=== PATIENT | female | born 1935 | race Caucasian/White ===

== ENCOUNTER → 2017-02-20 | Outpatient (CLI) | payer MEDICARE ==
--- NOTE | 2017-02-20 15:43 | RAD ---
MR of the right shoulder Indication: Chronic pain, increased after injury in December. Technique: Standard multiplanar sequences are obtained. Findings: Rotator cuff and acromioclavicular joint: Massive rotator cuff tear. Complete rupture of the supraspinatus and infraspinatus tendons, with severe retraction to the superior glenoid. Severe muscle atrophy and fatty infiltration. High-grade subscapularis tendon tear. Severely high riding humerus with severe undersurface pressure erosion of the acromion and the outer clavicle. Glenohumeral cartilage: Severe chondromalacia compatible with primary osteoarthritis. Fluid: Moderate joint effusion, with a complex appearance or cellulitis. This communicates with the subdeltoid bursa, with a large subdeltoid bursal effusion particularly posteriorly.. Labrum: Circumferential degeneration and tearing. Biceps tendon: Not visualized. Bones: Marrow signal is diffusely of low T1 and slightly high T2 signal, but without an aggressive appearance. Findings could be due to hematopoietic marrow conversion. No focal area of aggressive bone destruction or acute fracture. Soft tissue: No acute findings. Impression: 1. Massive rotator cuff tear with retraction and severe atrophy. 2. Severely high riding humerus with undersurface pressure erosion upon the acromioclavicular joint. 3. Primary glenohumeral joint osteoarthritis with circumferential labral degeneration/tearing. 4. Nonvisualized biceps tendon suspect rupture. 5. Moderate joint effusion with synovitis and large communicating subdeltoid bursal effusion. 6. Heterogeneous marrow signal intensity may be related to aging and hematopoietic reconversion. No definite focal aggressive pathology, but recommend clinical correlation regarding the possibility of infiltrative marrow process such as myelodysplastic or myeloproliferative disease. Electronically signed by: Aries Pool MD (02/20/2017 3:39 PM) [facility]
== END | disposition home or self-care (01) ==
LOC: MRI 14:23
PROVIDERS: ATTEND Family Medicine
DX: M75.101 Unspecified rotator cuff tear or rupture of right shoulder, not specified as traumatic (principal); M19.011 Primary osteoarthritis, right shoulder; M65.811 Other synovitis and tenosynovitis, right shoulder; G89.29 Other chronic pain
CPT/HCPCS: 73221

== ENCOUNTER → 2018-01-11 | Outpatient (CLI) | payer MEDICARE ==
[~2018-01-11] VITALS: Ht 149.9 cm; Wt 54.4 kg
[2018-01-11] VITALS (9 sets, daily range): BP systolic 120–179; BP diastolic 50–84
[~2018-01-11] MED LIST: ALEN70TA5 PO; ASPI81TA50 PO; CA C1TAB62 PO; CALC625T PO; HYDR12.53 PO; LIDOCAINE WITH 8.4% SOD BICARB 3 ML DISP.SYRIN. IJ ONE; LIDOCAINE WITH 8.4% SOD BICARB 3 ML DISP.SYRIN. ONE; LOSA25TA4 PO; METF500T5 PO; METO100T7 PO; MIDAZOLAM HCL/PF 2 MG/2 ML VIAL. IV ONE; MIDAZOLAM HCL/PF 2 MG/2 ML VIAL. ONE; NIAC500T PO; OMEP20CA9 PO; fentaNYL PF VIAL 100 MCG/2 ML VIAL IV ONE; fentaNYL PF VIAL 100 MCG/2 ML VIAL ONE
[2018-01-11 08:59] LABS: BASO # 0.1 x10^3/uL (0.0-0.2); BASO % 1 % (0-3); EOS # 0.1 x10^3/uL (0.0-0.7); EOS % 2 % (0-3); HEMATOCRIT 29.2 % (36.0-47.0); HEMOGLOBIN 10.1 g/dL (12.0-15.5); LYMPH % 18 % (24-48); MEAN CORPUSCULAR HEMOGLOBIN 28 pg (25-35); MEAN CORPUSCULAR HGB CONC 35 g/dL (31-37); MEAN CORPUSCULAR VOLUME 82 fL (79-100); MONO # 0.9 x10^3/uL (0.0-1.1); MONO % 15 % (0-9); NEUT # 3.9 x10^3uL (1.8-7.7); NEUT % 65 % (31-73); PLATELET COUNT 532 x10^3/uL (140-400); RED BLOOD COUNT 3.56 x10^6/uL (3.50-5.40); RED CELL DISTRIBUTION WIDTH 15.2 % (11.5-14.5); WHITE BLOOD COUNT 5.9 x10^3/uL (4.0-11.0)
[2018-01-11 09:12] LABS: CALCIUM 8.9 mg/dL (8.5-10.1); CREATININE 0.9 mg/dL (0.6-1.0); GFR 60.1; POTASSIUM 4.1 mmol/L (3.5-5.1)
[2018-01-11 09:22] LABS: PROTHROMBIN TIME PATIENT 13.3 SEC (11.7-14.0)
[2018-01-11 09:25] LABS: ALBUMIN 2.7 g/dL (3.4-5.0); ALBUMIN/GLOBULIN RATIO 0.4 (1.0-1.7); TOTAL BILIRUBIN 0.4 mg/dL (0.2-1.0); TOTAL PROTEIN 9.4 g/dL (6.4-8.2)
--- NOTE | 2018-01-11 09:43 | PDOC ---
MODERATE SEDATION ASSESSMENT RISKS/ALTERNATIVES Risks/Alternatives Risks and alternatives of this type of sedation and procedure discussed with: RISK/ALTERNATIVES: Patient H & P ON CHART H & P H & P on chart and reviewed for co-morbid conditions and appropriate labs. H&P ON CHART: Yes STATUS PREG STATUS ASSESSED: Yes MEDS/ALLERGIES REVIEWED Meds/Allergies Reviewed Medications and Allergies including time and route of recently administered narcotics and sedatives. MEDS/ALLERGIES REVIEWED: Yes ASA RATING ASA RATING: II AIRWAY ASSESSMENT Airway Assessment Airway patency, oral function limitations, presence of caps, crowns, dentures, partials, and ability to extend neck assessed. AIRWAY ASSESSMENT: Yes MALLAMPATI SCORE MALLAMPATI SCORE: II PRE-SEDATION ASSESSMENT PRE-SEDATION ASSESSMENT: Yes TIARA PARKER MD Jan 11, 2018 09:43
--- NOTE | 2018-01-11 10:52 | RAD ---
CT-guided bone marrow biopsy. 01/11/2018 10:48 AM Indication: MGUS Discussion: The risks and benefits of the procedure, including but not limited to, bleeding and infection were discussed patient. Informed consent was obtained. The patient was brought to the CT scanner and placed in the prone position. A timeout procedure was performed. [employer] CT imaging of the pelvis demonstrated left ilium amenable to bone marrow biopsy. The overlying soft tissues were prepped and draped using maximum sterile barrier technique. 1% lidocaine without epinephrine was administered for local anesthesia. Under intermittent CT guidance, an OncControl needle was advanced into the bone marrow of the left iliac crest. 2 Aspirates and 1 core biopsy samples were obtained. Samples were delivered to pathology was present at the time of procedure. The needle was removed and manual pressure held to achieve hemostasis. No immediate complications were identified. The procedure was performed under conscious sedation including continuous cardiopulmonary monitoring via dedicated sedation nurse. Sedation time: 20 minutes Impression: Successful CT-guided bone marrow biopsy of the left iliac crest . PQRS Compliance Statement: One or more of the following individualized dose reduction techniques were utilized for this examination: 1. Automated exposure control 2. Adjustment of the mA and/or kV according to patient size 3. Use of iterative reconstruction technique
== END | disposition home or self-care (01) ==
LOC: INTRAD 08:21
PROVIDERS: ATTEND Internal Medicine Hematology & Oncology
DX: D47.2 Monoclonal gammopathy (principal); Z79.82 Long term (current) use of aspirin; Z79.899 Other long term (current) drug therapy; M19.011 Primary osteoarthritis, right shoulder; G89.29 Other chronic pain; I10 Essential (primary) hypertension; E11.9 Type 2 diabetes mellitus without complications; D64.9 Anemia, unspecified; Z98.49 Cataract extraction status, unspecified eye
CPT/HCPCS: 36415; 38222; 77012; 80053; 85025; 85610; 88184; 88185; 88237; 99152; J2250; J3010

== ENCOUNTER → 2018-01-14 | Outpatient (CLI) | payer MEDICARE ==
[2018-01-11 10:50] VITALS: BP 124/57
[~2018-01-14] MED LIST changes: +CONTRAST GIVEN. MC PRN; +IOHEXOL 240 MG/ML 50ML VIAL. PO ONE; +IOHEXOL 300 MG/ML 100ML VIAL. IV ONE; -LIDOCAINE WITH 8.4% SOD BICARB 3 ML DISP.SYRIN. IJ ONE; -LIDOCAINE WITH 8.4% SOD BICARB 3 ML DISP.SYRIN. ONE; -MIDAZOLAM HCL/PF 2 MG/2 ML VIAL. IV ONE; -MIDAZOLAM HCL/PF 2 MG/2 ML VIAL. ONE; -fentaNYL PF VIAL 100 MCG/2 ML VIAL IV ONE; -fentaNYL PF VIAL 100 MCG/2 ML VIAL ONE
--- NOTE | 2018-01-14 10:38 | RAD ---
EXAM: CT Chest, Abdomen and Pelvis with IV contrast CLINICAL HISTORY: MGUS INJ 75ML OMNI 300 NO PREV COMPARISON: None. TECHNIQUE: Helical CT of the chest, abdomen and pelvis was performed following the administration of intravenous contrast. Oral contrast was administered. Axial, coronal and sagittal reformatted images were generated. ---PQRS compliance statement - One or more of the following individualized dose reduction techniques were utilized for this study: 1. Automated exposure control 2. Adjustment of the mA and/or kV according to patient size 3. Use of iterative reconstruction technique--- FINDINGS: Chest: The heart is not enlarged. No pericardial effusion. Thickening of the myocardium at the cardiac apex possibly from prior infarct. Prominent axillary lymph nodes are seen, not enlarged by size criteria. No mediastinal or hilar lymphadenopathy. Moderate-sized hiatal hernia. Linear opacities in the left lung base likely subsegmental atelectasis or scarring. Azygos lobe is incidentally seen. No suspicious lung nodule or mass is identified. No pleural effusion or pneumothorax. Abdomen and Pelvis: No focal liver lesion. Cholecystectomy clips are seen. No biliary ductal dilatation. Spleen is top normal in size measuring 11.8 cm in length. Adrenal glands and pancreas are unremarkable. Symmetric nephrograms. No focal renal lesion. No hydronephrosis. Colonic diverticulosis. No evidence for acute diverticulitis. No small or large bowel dilatation to suggest bowel obstruction. Appendix is not seen. No significant right lower quadrant fatty inflammatory changes seen. Oral contrast material seen to the level of the hepatic flexure. Moderate colonic stool content. Bladder is unremarkable. Bones: Degenerative changes of the spine are seen. Evaluation for the bony lesion is limited given diffuse osteopenia. Within these constraints, there is a corduroy/trabeculated appearance of the L4 vertebral body likely hemangioma. Otherwise no convincing lytic lesion is identified. Collection about the right shoulder likely joint effusion/subacromial subdeltoid bursal distention with suspected full-thickness rotator cuff tear given acromiohumeral articulation. IMPRESSION: 1. No thoracic, abdominal or pelvic lymphadenopathy. 2. Diffuse osteopenia limits evaluation for discrete lytic lesion, but within these constraints no discrete lytic lesion is identified. 3. Collection about the right shoulder likely joint effusion/subacromial subdeltoid bursal distention with suspected full-thickness rotator cuff tear given high riding humeral head. 4. Moderate-sized hiatal hernia. Electronically signed by: Gonsalo Drummond MD (01/14/2018 10:34 AM) [id number]
== END | disposition home or self-care (01) ==
LOC: CT 08:26
PROVIDERS: ATTEND Internal Medicine Hematology & Oncology
DX: K44.9 Diaphragmatic hernia without obstruction or gangrene (principal); M85.80 Other specified disorders of bone density and structure, unspecified site; D47.2 Monoclonal gammopathy; I10 Essential (primary) hypertension; D64.9 Anemia, unspecified; Z79.899 Other long term (current) drug therapy
CPT/HCPCS: 71260; 74177; Q9966; Q9967

== ENCOUNTER → 2018-11-24 | Outpatient (CLI) | payer MEDICARE, OTHER ==
[2018-05-07 15:57] VITALS: BP 155/76
[~2018-11-24] MED LIST changes: -ALEN70TA5 PO; +ALEN70TA6 PO; -CONTRAST GIVEN. MC PRN; -HYDR12.53 PO; +HYDR12.575 PO; +HYDR12.58 PO; -IOHEXOL 240 MG/ML 50ML VIAL. PO ONE; -IOHEXOL 300 MG/ML 100ML VIAL. IV ONE; -LOSA25TA4 PO; +LOSA25TA54 PO; +METF500T16 PO; -METF500T5 PO; +OMEP20CA10 PO; -OMEP20CA9 PO; +OXYC1TAB15 PO; +OXYC1TAB19 PO; +RITU10VI IV; +WARF3TAB54 PO
--- NOTE | 2018-11-24 16:07 | RAD ---
RENAL ARTERY ARTERIAL DOPPLER ULTRASOUND Clinical Indication: Accelerated hypertension Comparison: None. Technique: Multiple grayscale, color flow, and Doppler spectral waveform analysis images of the abdominal aorta and renal arteries were obtained. Findings: Abdominal aorta peak systolic velocity: 119 cm/sec. The proximal abdominal aorta is normal in caliber. The mid and distal abdominal aorta are obscured due to overlying bowel gas. Right main renal artery peak systolic velocity: 142 cm/sec. Right renal artery to aorta ratio: 1.2 Left main renal artery peak systolic velocity: 80 cm/sec. Left renal artery to aorta ratio: 0.7 Renal veins are patent. The right kidney measures 10.4 cm. The left kidney measures 10.9 cm. Limited grayscale visualization of the kidneys due to overlying bowel gas. Corticomedullary differentiation is preserved. No hydronephrosis. IMPRESSION: No evidence of hemodynamically significant renal artery stenosis. Electronically signed by: Estrada Farley MD (11/24/2018 4:04 PM) [id number]
== END | disposition home or self-care (01) ==
LOC: US 07:07
PROVIDERS: ATTEND Family Medicine
DX: I10 Essential (primary) hypertension (principal)
CPT/HCPCS: 93975

== ENCOUNTER 2018-12-05 19:33 | Inpatient (IN) | payer MEDICARE, OTHER ==
[~2018-12-05] VITALS: Ht 144.8 cm; Wt 59.1 kg
[2018-12-05] MEDS ORDERED: ACETAMINOPHEN 325 MG TABLET. PO ONE (20:00)
[2018-12-05] MEDS: IV NORMAL SALINE 1000ML BAG 1,000 ML IV SCH ×3 (20:00→23:18)
[2018-12-05] MEDS ORDERED: cefTRIAXone IV Push 2 GM VIAL. IVP ONE (20:00)
[2018-12-05] MEDS ORDERED: dilTIAZem IV PUSH 25 MG/5 ML VIAL IVP ONE (20:30)
[2018-12-05 20:34] LABS: BASO % 0 % (0-3); EOS % 0 % (0-3); HEMATOCRIT 29.5 % (36.0-47.0); LYMPH # 0.6 x10^3/uL (1.0-4.8); LYMPH % 16 % (24-48); MEAN CORPUSCULAR HEMOGLOBIN 28 pg (25-35); MEAN CORPUSCULAR HGB CONC 34 g/dL (31-37); MEAN CORPUSCULAR VOLUME 82 fL (79-100); MONO # 2.8 x10^3/uL (0.0-1.1); MONO % 78 % (0-9); NEUT # 0.2 x10^3/uL (1.8-7.7); NEUT % 5 % (31-73); PLATELET COUNT 232 x10^3/uL (140-400); RED BLOOD COUNT 3.59 x10^6/uL (3.50-5.40); RED CELL DISTRIBUTION WIDTH 14.9 % (11.5-14.5)
[2018-12-05 20:35] LABS: BILIRUBIN,URINE SMALL (NEG); CLARITY,URINE CLEAR; COLOR,URINE AMBER; NITRITE,URINE NEGATIVE (NEG); PH,URINE 5.5; PROTEIN,URINE >=300 mg/dL (NEG-TRACE)
[2018-12-05 20:42] LABS: PROTHROMBIN TIME PATIENT 15.4 SEC (11.7-14.0)
[2018-12-05 20:45] LABS: CALCIUM 8.4 mg/dL (8.5-10.1); CREATININE 1.5 mg/dL (0.6-1.0); GFR 33.2; POTASSIUM 3.3 mmol/L (3.5-5.1)
[2018-12-05 20:46] LABS: AMORPHOUS SEDIMENT,UR PRESENT /HPF; BACTERIA,URINE FEW /HPF (0-FEW); RBC,URINE OCC /HPF (0-2); SQUAMOUS EPITHELIAL CELL,UR OCC /LPF; WBC,URINE OCC /HPF (0-4)
[2018-12-05 20:52] LABS: ALBUMIN 2.7 g/dL (3.4-5.0); ALBUMIN/GLOBULIN RATIO 0.7 (1.0-1.7); MAGNESIUM 1.6 mg/dL (1.8-2.4); TOTAL BILIRUBIN 1.2 mg/dL (0.2-1.0); TOTAL PROTEIN 6.6 g/dL (6.4-8.2)
[2018-12-05] MEDS ORDERED: DOXYCYCLINE HYCLATE 100 MG in IV DEXTROSE 5% 100ML 100 ML IV ONE (21:00)
[2018-12-05] MEDS ORDERED: MAGNESIUM SULFATE 1GM 100 ML IV ONE (21:15)
[2018-12-05] MEDS: POTASSIUM CHLORIDE 10MEQ 100 ML IV SCH ×2 (21:17→23:17)
[2018-12-05] MEDS ORDERED: dilTIAZem INJ 125 MG in IV DEXTROSE 5% 100ML 100 ML IV ONE (21:30)
--- NOTE | 2018-12-05 21:55 | RAD ---
AP chest x-ray HISTORY: Fever. FINDINGS: Heart size normal. Hiatal hernia upper stomach. Azygos lobe right medial apex. Old healed right rib deformities. Advanced right shoulder arthritis perhaps associated with chronic rotator cuff tear. Reticulonodular densities about the perihilar lungs and lower lobes. Peribronchial cuffing about the perihilar and infrahilar lungs could indicate bronchitis. No lobar consolidation. IMPRESSION: Peribronchial cuffing may indicate bronchitis. Reticulonodular densities at the lower lobes could be indicative of pneumonia. Electronically signed by: Senthil Murphy MD (12/05/2018 9:52 PM) [facility]
--- NOTE | 2018-12-05 21:59 | PHYS DOC ---
Past Medical History Past Medical History: Cancer, Hypertension Additional Past Medical Histor: LYMPHOMA Past Surgical History: No Surgical History Alcohol Use: None Drug Use: None Adult General Chief Complaint Chief Complaint: WEAKNESS/GENERALIZED HPI HPI Patient is a 83 year old female is presenting with chief complaint of generalized weakness lightheadedness had a fever felt hot earlier in the day when not coughing that much just not eating well and feeling weak overall. No chest pain no abdominal pain did throw up once earlier. No urinary symptoms really Review of Systems Review of Systems Constitutional: Eyes: Denies change in visual acuity, redness, or eye pain [] HENT: Denies nasal congestion or sore throat [] Respirator Cardiovascular: No additional information not addressed in HPI [] GI: Musculoskeletal: Denies back pain or joint pain [] Integument: Denies rash or skin lesions [] Neurologic: Denies headache, focal weakness or sensory changes [] Endocrine: Denies polyuria or polydipsia [] All other systems were reviewed and found to be within normal limits, except as documented in this note. Current Medications Current Medications Current Medications Medications (Trade) Dose Ordered Sig/Valarie Start Time Stop Time Status Last Admin Dose Admin Acetaminophen (Tylenol) 650 mg 1X ONCE 12/05/18 20:00 12/05/18 20:04 DC 12/05/18 20:34 650 MG Ceftriaxone Sodium (Rocephin) 2 gm 1X ONCE 12/05/18 20:00 12/05/18 20:04 DC 12/05/18 20:35 2 GM Diltiazem HCl (Cardizem Iv Push) 10 mg 1X ONCE 12/05/18 20:30 12/05/18 20:31 DC 12/05/18 20:36 10 MG Diltiazem HCl 125 mg/Dextrose 125 ml @ 5 mls/hr 1X ONCE 12/05/18 21:30 12/06/18 22:29 12/05/18 21:27 5 MLS/HR Doxycycline Hyclate 100 mg/ Dextrose 100 ml @ 50 mls/hr 1X ONCE 12/05/18 21:00 12/05/18 22:59 12/05/18 21:07 50 MLS/HR Magnesium Sulfate/ Dextrose 100 ml @ 100 mls/hr 1X ONCE 12/05/18 21:15 12/05/18 22:14 DC 12/05/18 21:27 100 MLS/HR Potassium Chloride/Water 100 ml @ 100 mls/hr Q1H 12/05/18 21:15 12/05/18 23:14 12/05/18 21:17 100 MLS/HR Sodium Chloride 1,000 ml @ 1,620 mls/hr Q38M 12/05/18 20:00 12/05/18 21:00 DC 12/05/18 20:00 1,620 MLS/HR Allergies Allergies Allergies Coded Allergies Type Severity Reaction Last Updated Verified No Known Allergies Allergy Unknown 05/04/18 Yes Physical Exam Physical Exam Constitutional: Well developed, well nourished, no acute distress, non-toxic appearance. [] HENT: Normocephalic, atraumatic, bilateral external ears normal, oropharynx moist, no oral exudates, nose normal. [] Eyes: PERRLA, EOMI, conjunctiva normal, no discharge. [] Neck: Normal range of motion, no tenderness, supple, no stridor. [] Cardiovascular:Heart rate regular rhythm, no murmur [] Lungs & Thorax: Bilateral breath sounds clear to auscultation [] Abdomen: Bowel sounds normal, soft, no tenderness, no masses, no pulsatile masses. [] Skin: Warm, dry, no erythema, no rash. [] Back: No tenderness, no CVA tenderness. [] Extremities: No tenderness, no cyanosis, no clubbing, ROM intact, no edema. [] Neurologic: Alert and oriented X 3, normal motor function, normal sensory function, no focal deficits noted. [] Psychologic: Affect normal, judgement normal, mood normal. [] Current Patient Data Vital Signs Vital Signs Date Time Temp Pulse Resp B/P (MAP) Pulse Ox O2 Delivery O2 Flow Rate FiO2 12/05/18 21:27 126 15 97 12/05/18 20:36 146/60 12/05/18 20:02 103.0 103.0 12/05/18 19:45 Room Air Lab Values Laboratory Tests Test 12/05/18 20:20 12/05/18 20:30 White Blood Count 3.6 x10^3/uL (4.0-11.0) L Red Blood Count 3.59 x10^6/uL (3.50-5.40) Hemoglobin 10.0 g/dL (12.0-15.5) L Hematocrit 29.5 % (36.0-47.0) L Mean Corpuscular Volume 82 fL (79-100) Mean Corpuscular Hemoglobin 28 pg (25-35) Mean Corpuscular Hemoglobin Concent 34 g/dL (31-37) Red Cell Distribution Width 14.9 % (11.5-14.5) H Platelet Count 232 x10^3/uL (140-400) Neutrophils (%) (Auto) 5 % (31-73) L Lymphocytes (%) (Auto) 16 % (24-48) L Monocytes (%) (Auto) 78 % (0-9) H Eosinophils (%) (Auto) 0 % (0-3) Basophils (%) (Auto) 0 % (0-3) Neutrophils # (Auto) 0.2 x10^3/uL (1.8-7.7) L Lymphocytes # (Auto) 0.6 x10^3/uL (1.0-4.8) L Monocytes # (Auto) 2.8 x10^3/uL (0.0-1.1) H Eosinophils # (Auto) 0.0 x10^3/uL (0.0-0.7) Basophils # (Auto) 0.0 x10^3/uL (0.0-0.2) Platelet Estimate Pending Prothrombin Time 15.4 SEC (11.7-14.0) H Prothrombin Time INR 1.3 (0.8-1.1) H Sodium Level 125 mmol/L (136-145) L Potassium Level 3.3 mmol/L (3.5-5.1) L Chloride Level 91 mmol/L (98-107) L Carbon Dioxide Level 19 mmol/L (21-32) L Anion Gap 15 (6-14) H Blood Urea Nitrogen 36 mg/dL (7-20) H Creatinine 1.5 mg/dL (0.6-1.0) H Estimated GFR (Cockcroft-Gault) 33.2 BUN/Creatinine Ratio 24 (6-20) H Glucose Level 95 mg/dL (70-99) Lactic Acid Level 1.4 mmol/L (0.4-2.0) Calcium Level 8.4 mg/dL (8.5-10.1) L Magnesium Level 1.6 mg/dL (1.8-2.4) L Total Bilirubin 1.2 mg/dL (0.2-1.0) H Aspartate Amino Transferase (AST) 16 U/L (15-37) Alanine Aminotransferase (ALT) 37 U/L (14-59) Alkaline Phosphatase 78 U/L (46-116) Troponin I Quantitative < 0.017 ng/mL (0.000-0.055) WH-Fdw-[id number]-Type Natriuretic Peptide 8947 pg/mL (0-449) H Total Protein 6.6 g/dL (6.4-8.2) Albumin 2.7 g/dL (3.4-5.0) L Albumin/Globulin Ratio 0.7 (1.0-1.7) L Lipase 46 U/L (73-393) L Urine Collection Type U cath Urine Color Eulalia Urine Clarity Clear Urine pH 5.5 Urine Specific [place] 1.020 Urine Protein >=300 mg/dL (NEG-TRACE) Urine Glucose (UA) Negative mg/dL (NEG) Urine Ketones (Stick) Trace mg/dL (NEG) Urine Blood Negative (NEG) Urine Nitrite Negative (NEG) Urine Bilirubin Small (NEG) Urine Urobilinogen Dipstick 1.0 mg/dL (0.2 mg/dL) Urine Leukocyte Esterase Negative (NEG) Urine RBC Occ /HPF (0-2) Urine WBC Occ /HPF (0-4) Urine Squamous Epithelial Cells Occ /LPF Urine Amorphous Sediment Present /HPF Urine Bacteria Few /HPF (0-FEW) Urine Mucus Slight /LPF Laboratory Tests 12/05/18 20:20 Laboratory Tests 12/05/18 20:20 EKG EKG Thanks differential includes multifocal atrial tachycardia versus A. fib with RVR disorder difficult to say with certainty but there are clear P waves in V2 and V3 however on the library monitor ER visit really looks like she is going in and out of A. fib RVR Radiology/Procedures Radiology/Procedures [] Impressions: FINDINGS: Heart size normal. Hiatal hernia upper stomach. Azygos lobe right medial apex. Old healed right rib deformities. Advanced right shoulder arthritis perhaps associated with chronic rotator cuff tear. Reticulonodular densities about the perihilar lungs and lower lobes. Peribronchial cuffing about the perihilar and infrahilar lungs could indicate bronchitis. No lobar consolidation. IMPRESSION: Peribronchial cuffing may indicate bronchitis. Reticulonodular densities at the lower lobes could be indicative of pneumonia. Electronically signed by: Connie Murphy MD (12/05/2018 9:52 PM) [facility] DICTATED and SIGNED BY: CONNIE MURPHY MD DATE: 12/05/182151 Course & Med Decision Making Course & Med Decision Making Pertinent Labs and Imaging studies reviewed. (See chart for details) []This is an 83-year-old female history of hypertension and some type of lymphoma present with generalize weakness found to have a fever of 102.9 Chest x-ray shows pneumonia patient did have some tachycardic rhythm in the emergency room as high as 150 at one point started diltiazem she had a moderate response to that heart rate was in the 120s on reevaluation. Blood pressure remained stable lactic acid was within normal limits. Patient received antibiotics in the ER and I spoke with Dr. MARAIVLLA FOR ADMIT ABOUT 930 PM. Dragon Disclaimer Dragon Disclaimer This electronic medical record was generated, in whole or in part, using a voice recognition dictation system. Departure Departure Impression: Primary Impression: Pneumonia Additional Impression: Atrial fibrillation with RVR Disposition: ADMITTED INPATIENT Admitting Physician: Marcelle Maravilla Condition: STABLE Referrals: JOSE HERNÁNDEZ MD (PCP) Date and Time of Reassessment Date: Dec 05, 2018 Time: 22:31 Fluid Challenge Is the fluid challenge complet: Yes IBW Target Volume Used: No BMI > 30: No Vital Signs Vital Signs: Vital Signs Date Time Temp Pulse Resp B/P (MAP) Pulse Ox O2 Delivery O2 Flow Rate FiO2 12/05/18 21:27 126 15 97 12/05/18 20:36 146/60 12/05/18 20:02 103.0 103.0 12/05/18 19:45 Room Air Temperature Source: Oral Respirations Respiratory Effort: Shortness of breath Cardiovascular Pulse Rhythm: Irregular Heart: No gallops noted Lung Sounds Breath Sounds: Diminished Capillary Refil Capillary Refill: Rt Hand < 3 seconds Peripheral Pulse Pulse Location: Monitor Pulse Strength: Normal (2+) Pulse Assessment Method: NIBP Integumentary Skin: Warm, Dry Skin Color: warm (OVERALL HEART RATE DECREASED SLIGHTLY, RESPOIRATORY EFFORT SAME.) Problem Qualifiers NUBIA TOVAR MD Dec 05, 2018 21:59
[2018-12-05 22:45] VITALS: BP 116/60
[2018-12-05 22:50] VITALS: BP 116/60
[2018-12-05] MEDS ORDERED: AMLO5TAB10 PO (23:48)
[2018-12-05] MEDS ORDERED: NIAC500T PO (23:48)
[2018-12-05] MEDS ORDERED: LORA10TA68 PO (23:48)
[2018-12-05] MEDS ORDERED: LOSA-73 PO (23:48)
[2018-12-05] MEDS ORDERED: METO100T7 PO (23:48)
[2018-12-05] MEDS ORDERED: HYDR-2869 PO (23:48)
[2018-12-05] MEDS ORDERED: MOME17SP NS (23:48)
[2018-12-05] MEDS ORDERED: METF500T16 PO (23:48)
[2018-12-05] MEDS ORDERED: CALC-102 PO (23:48)
[2018-12-05] MEDS ORDERED: FERR325T14 PO (23:48)
[2018-12-05] MEDS ORDERED: CHOL100013 PO (23:48)
[2018-12-06] VITALS (12 sets, daily range): BP systolic 90–116; BP diastolic 48–69
--- NOTE | 2018-12-06 00:51 | NUR ---
Change of care note: Bedside report giving pt resting comfortable assessment completed vss. Poc explained pt denies pain at this time will resume care and continue to monitor pt. call light in reach.
[2018-12-06] MEDS ORDERED: IBRU140C PO (01:20)
[2018-12-06 04:27] LABS: CALCIUM 7.9 mg/dL (8.5-10.1); CREATININE 1.4 mg/dL (0.6-1.0); POTASSIUM 3.3 mmol/L (3.5-5.1)
[2018-12-06] MEDS ORDERED: POTASSIUM CHLORIDE 20 MEQ TABLET.ER. PO ONE (06:15)
--- NOTE | 2018-12-06 08:07 | PDOC1 ---
History and Physical Date of Admission Date of Admission 12/05/18 Identification/Chief Complaint Chief Complaint Fever, not feeling good Source Source: Patient History of Present Illness History of Present Illness Pt says that she has not been feeling well since Thursday. She says that she was feeling lightheaded and overall did not feel well. Says that she finally checked her temperature yesterday and had a fever of 104F so decided to come to the ER. She really has not had too many other symptoms; slight runny nose that is clear. Intermittent non productive cough. Pt is on chemotherapy for lymphoma and Waldenstroms that was started 09/19/18 In the ER pt was found to be in afib with RVR. This is a new diagnosis for her Past Medical History Cardiovascular: HTN Pulmonary: No pertinent hx GI: Constipation, GERD Heme/Onc: Cancer, Other Hepatobiliary: No pertinent hx Psych: No pertinent hx Rheumatologic: No pertinent hx Infectious disease: No pertinent hx ENT: No pertinent hx Renal/: No pertinent hx Endocrine: Diabetes Dermatology: No pertinent hx Past Surgical History Past Surgical History: Cholecystectomy, Cataract Removal, Other Family History Family History: Cancer, Other (Emphysema) Social History Smoke: No ALCOHOL: none Drugs: None Current Medications Current Medications Current Medications Medications (Trade) Dose Ordered Sig/Valarie Start Time Stop Time Status Last Admin Dose Admin Acetaminophen (Tylenol) 650 mg 1X ONCE 12/05/18 20:00 12/05/18 20:04 DC 12/05/18 20:34 650 MG Ceftriaxone Sodium (Rocephin) 2 gm 1X ONCE 12/05/18 20:00 12/05/18 20:04 DC 12/05/18 20:35 2 GM Diltiazem HCl (Cardizem Iv Push) 10 mg 1X ONCE 12/05/18 20:30 12/05/18 20:31 DC 12/05/18 20:36 10 MG Diltiazem HCl 125 mg/Dextrose 125 ml @ 5 mls/hr 1X ONCE 12/05/18 21:30 12/06/18 22:29 12/05/18 21:27 5 MLS/HR Doxycycline Hyclate 100 mg/ Dextrose 100 ml @ 50 mls/hr 1X ONCE 12/05/18 21:00 12/05/18 22:59 DC 12/05/18 21:07 50 MLS/HR Magnesium Sulfate/ Dextrose 100 ml @ 100 mls/hr 1X ONCE 12/05/18 21:15 12/05/18 22:14 DC 12/05/18 21:27 100 MLS/HR Potassium Chloride/Water 100 ml @ 100 mls/hr Q1H 12/05/18 21:15 12/05/18 23:14 DC 12/05/18 23:17 100 MLS/HR Potassium Chloride (Klor-Con) 40 meq 1X ONCE 12/06/18 06:15 12/06/18 06:16 DC 12/06/18 06:27 40 MEQ Sodium Chloride 1,000 ml @ 75 mls/hr [id number] 12/05/18 22:00 12/06/18 21:59 12/05/18 23:18 75 MLS/HR Allergies Allergies Allergies Coded Allergies Type Severity Reaction Last Updated Verified No Known Allergies Allergy Unknown 05/04/18 Yes ROS Review of System CONSTITUTIONAL: No fever or chills EYES: No recent changes SKIN: No rash or itching CARDIOVASCULAR: No chest pain, syncope, palpitations, or edema RESPIRATORY: No SOB, intermittent cough GASTROINTESTINAL: No nausea, vomiting or abdominal pain NEUROLOGICAL: No headaches, +weakness ENDOCRINE: No cold or heat intolerance GENITOURINARY: No urgency or frequency of urination MUSCULOSKELETAL: No back pain or joint pain LYMPHATICS: No enlarged lymph nodes PSYCHIATRIC: No anxiety or depression Physical Exam Physical Exam GEN.: No apparent distress. Alert and oriented. HEENT: Head is normocephalic, atraumatic NECK: Supple. LUNGS: Clear to auscultation. HEART: RRR, S1, S2 present. Peripheral pulses intact ABDOMEN: Soft, nontender. Positive bowel sounds. EXTREMITIES: Without any cyanosis. NEUROLOGIC: Normal speech, normal tone PSYCHIATRIC: Normal affect, normal mood. SKIN: No ulcerations Vitals Vitals Vital Signs Date Time Temp Pulse Resp B/P (MAP) Pulse Ox O2 Delivery O2 Flow Rate FiO2 12/06/18 05:17 107 100/58 (72) 12/06/18 03:19 98.0 18 97 Room Air 98.0 Labs Labs Laboratory Tests Test 12/05/18 20:20 12/05/18 20:30 12/06/18 03:00 White Blood Count 3.6 x10^3/uL (4.0-11.0) Red Blood Count 3.59 x10^6/uL (3.50-5.40) Hemoglobin 10.0 g/dL (12.0-15.5) Hematocrit 29.5 % (36.0-47.0) Mean Corpuscular Volume 82 fL (79-100) Mean Corpuscular Hemoglobin 28 pg (25-35) Mean Corpuscular Hemoglobin Concent 34 g/dL (31-37) Red Cell Distribution Width 14.9 % (11.5-14.5) Platelet Count 232 x10^3/uL (140-400) Neutrophils (%) (Auto) 5 % (31-73) Lymphocytes (%) (Auto) 16 % (24-48) Monocytes (%) (Auto) 78 % (0-9) Eosinophils (%) (Auto) 0 % (0-3) Basophils (%) (Auto) 0 % (0-3) Neutrophils # (Auto) 0.2 x10^3/uL (1.8-7.7) Lymphocytes # (Auto) 0.6 x10^3/uL (1.0-4.8) Monocytes # (Auto) 2.8 x10^3/uL (0.0-1.1) Eosinophils # (Auto) 0.0 x10^3/uL (0.0-0.7) Basophils # (Auto) 0.0 x10^3/uL (0.0-0.2) Prothrombin Time 15.4 SEC (11.7-14.0) Prothromb Time International Ratio 1.3 (0.8-1.1) Sodium Level 125 mmol/L (136-145) 129 mmol/L (136-145) Potassium Level 3.3 mmol/L (3.5-5.1) 3.3 mmol/L (3.5-5.1) Chloride Level 91 mmol/L (98-107) 96 mmol/L (98-107) Carbon Dioxide Level 19 mmol/L (21-32) 18 mmol/L (21-32) Anion Gap 15 (6-14) 15 (6-14) Blood Urea Nitrogen 36 mg/dL (7-20) 31 mg/dL (7-20) Creatinine 1.5 mg/dL (0.6-1.0) 1.4 mg/dL (0.6-1.0) Estimated GFR (Cockcroft-Gault) 33.2 36.0 BUN/Creatinine Ratio 24 (6-20) Glucose Level 95 mg/dL (70-99) 100 mg/dL (70-99) Lactic Acid Level 1.4 mmol/L (0.4-2.0) Calcium Level 8.4 mg/dL (8.5-10.1) 7.9 mg/dL (8.5-10.1) Magnesium Level 1.6 mg/dL (1.8-2.4) Total Bilirubin 1.2 mg/dL (0.2-1.0) Aspartate Amino Transf (AST/SGOT) 16 U/L (15-37) Alanine Aminotransferase (ALT/SGPT) 37 U/L (14-59) Alkaline Phosphatase 78 U/L (46-116) Troponin I Quantitative < 0.017 ng/mL (0.000-0.055) TJ-Gbg-A-Type Natriuretic Peptide 8947 pg/mL (0-449) Total Protein 6.6 g/dL (6.4-8.2) Albumin 2.7 g/dL (3.4-5.0) Albumin/Globulin Ratio 0.7 (1.0-1.7) Lipase 46 U/L (73-393) Urine Collection Type U cath Urine Color Eulalia Urine Clarity Clear Urine pH 5.5 Urine Specific [place] 1.020 Urine Protein >=300 mg/dL (NEG-TRACE) Urine Glucose (UA) Negative mg/dL (NEG) Urine Ketones (Stick) Trace mg/dL (NEG) Urine Blood Negative (NEG) Urine Nitrite Negative (NEG) Urine Bilirubin Small (NEG) Urine Urobilinogen Dipstick 1.0 mg/dL (0.2 mg/dL) Urine Leukocyte Esterase Negative (NEG) Urine RBC Occ /HPF (0-2) Urine WBC Occ /HPF (0-4) Urine Squamous Epithelial Cells Occ /LPF Urine Amorphous Sediment Present /HPF Urine Bacteria Few /HPF (0-FEW) Urine Mucus Slight /LPF Laboratory Tests Test 12/05/18 20:20 12/05/18 20:30 12/06/18 03:00 White Blood Count 3.6 x10^3/uL (4.0-11.0) Red Blood Count 3.59 x10^6/uL (3.50-5.40) Hemoglobin 10.0 g/dL (12.0-15.5) Hematocrit 29.5 % (36.0-47.0) Mean Corpuscular Volume 82 fL (79-100) Mean Corpuscular Hemoglobin 28 pg (25-35) Mean Corpuscular Hemoglobin Concent 34 g/dL (31-37) Red Cell Distribution Width 14.9 % (11.5-14.5) Platelet Count 232 x10^3/uL (140-400) Neutrophils (%) (Auto) 5 % (31-73) Lymphocytes (%) (Auto) 16 % (24-48) Monocytes (%) (Auto) 78 % (0-9) Eosinophils (%) (Auto) 0 % (0-3) Basophils (%) (Auto) 0 % (0-3) Neutrophils # (Auto) 0.2 x10^3/uL (1.8-7.7) Lymphocytes # (Auto) 0.6 x10^3/uL (1.0-4.8) Monocytes # (Auto) 2.8 x10^3/uL (0.0-1.1) Eosinophils # (Auto) 0.0 x10^3/uL (0.0-0.7) Basophils # (Auto) 0.0 x10^3/uL (0.0-0.2) Prothrombin Time 15.4 SEC (11.7-14.0) Prothromb Time International Ratio 1.3 (0.8-1.1) Sodium Level 125 mmol/L (136-145) 129 mmol/L (136-145) Potassium Level 3.3 mmol/L (3.5-5.1) 3.3 mmol/L (3.5-5.1) Chloride Level 91 mmol/L (98-107) 96 mmol/L (98-107) Carbon Dioxide Level 19 mmol/L (21-32) 18 mmol/L (21-32) Anion Gap 15 (6-14) 15 (6-14) Blood Urea Nitrogen 36 mg/dL (7-20) 31 mg/dL (7-20) Creatinine 1.5 mg/dL (0.6-1.0) 1.4 mg/dL (0.6-1.0) Estimated GFR (Cockcroft-Gault) 33.2 36.0 BUN/Creatinine Ratio 24 (6-20) Glucose Level 95 mg/dL (70-99) 100 mg/dL (70-99) Lactic Acid Level 1.4 mmol/L (0.4-2.0) Calcium Level 8.4 mg/dL (8.5-10.1) 7.9 mg/dL (8.5-10.1) Magnesium Level 1.6 mg/dL (1.8-2.4) Total Bilirubin 1.2 mg/dL (0.2-1.0) Aspartate Amino Transf (AST/SGOT) 16 U/L (15-37) Alanine Aminotransferase (ALT/SGPT) 37 U/L (14-59) Alkaline Phosphatase 78 U/L (46-116) Troponin I Quantitative < 0.017 ng/mL (0.000-0.055) FM-Fmv-W-Type Natriuretic Peptide 8947 pg/mL (0-449) Total Protein 6.6 g/dL (6.4-8.2) Albumin 2.7 g/dL (3.4-5.0) Albumin/Globulin Ratio 0.7 (1.0-1.7) Lipase 46 U/L (73-393) Urine Collection Type U cath Urine Color Eulalia Urine Clarity Clear Urine pH 5.5 Urine Specific [place] 1.020 Urine Protein >=300 mg/dL (NEG-TRACE) Urine Glucose (UA) Negative mg/dL (NEG) Urine Ketones (Stick) Trace mg/dL (NEG) Urine Blood Negative (NEG) Urine Nitrite Negative (NEG) Urine Bilirubin Small (NEG) Urine Urobilinogen Dipstick 1.0 mg/dL (0.2 mg/dL) Urine Leukocyte Esterase Negative (NEG) Urine RBC Occ /HPF (0-2) Urine WBC Occ /HPF (0-4) Urine Squamous Epithelial Cells Occ /LPF Urine Amorphous Sediment Present /HPF Urine Bacteria Few /HPF (0-FEW) Urine Mucus Slight /LPF VTE Prophylaxis Ordered VTE Prophylaxis Devices: Yes VTE Pharmacological Prophylaxi: No Assessment/Plan Assessment/Plan Pt is a 83yo CF admitted for neutropenic fever and afib with RVR 1)Neutropenic fever- pt being treated for pneumonia. She states that she is feeling better since her admission and her fever has reduced. Will continue pt on doxycycline. 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 Dr. Osuna consulted. 3)Afib with RVR- new onset. Cardiology consulted. Pt still tachycardic, currently on Diltiazem gtt. Will resume pt's home medication of Metoprolol 100mg BID 4)HTN- pt currently hypotensive. Other than continuing pt's Metoprolol, will hold her Losartan for now 5)BRITTA- prerenal. Pt currently receiving IVF hydration. CTM 6)Prediabetes- will hold pt's Metformin 7)HLD- pt's niacin continued 8)Anemia- Hb currently stable and improved from previous admissions. Pt continued on Ferrous Sulfate 9)Hyponatremia- improving with IVF hydration. CTM 10)Hypokalemia- being replaced 11)PEM- moderate TERRELL AGARWAL MD Dec 06, 2018 08:07
[2018-12-06] MEDS ORDERED: ENOXAPARIN 30 MG/0.3 ML SYRINGE. SQ SCH (08:15)
[2018-12-06] MEDS ORDERED: FLUTICASONE 50MCG/NASAL SPRAY 16GM BOTTLE. NS PRN (09:00)
[2018-12-06] MEDS: ASPIRIN ENTERIC COATED 81 MG TABLET.DR. PO SCH (09:00)
[2018-12-06] MEDS ORDERED: NON FORMULARY ITEM (Alendronate Sodium 1 TAB) PO SCH (09:00)
[2018-12-06] MEDS: FERROUS SULFATE 325 MG TABLET. PO SCH (09:00)
[2018-12-06] MEDS: CALCIUM POLYCARBOPHIL 625 MG TABLET PO SCH (09:00)
[2018-12-06] MEDS: PANTOPRAZOLE 40 MG TABLET.DR. PO SCH (09:00)
[2018-12-06] MEDS: CHOLECALCIFEROL (VITAMIN D3) 1,000 UNIT TABLET PO SCH (09:00)
[2018-12-06] MEDS: METOPROLOL TART IMMED RELEASE 50 MG TABLET. PO SCH ×2 (09:03→21:15)
[2018-12-06] MEDS: DOXYCYCLINE HYCLATE 100 MG in IV DEXTROSE 5% 100ML 100 ML IV SCH ×2 (09:03→21:15)
[2018-12-06] MEDS ORDERED: dilTIAZem INJ 125 MG in IV DEXTROSE 5% 100ML 100 ML IV PRN (09:30)
--- NOTE | 2018-12-06 10:16 | PDOC2 ---
PASCUAL BOWSER MJ 12/06/18 1016: CARDIAC CONSULT DATE OF CONSULT Date of Consult DATE: 12/06/18 TIME: 10:00 REASON FOR CONSULT Reason for Consult: New onset AFIB wtih RVR REFERRING PHYSICIAN Referring Physician: Dr. Maravilla SOURCE Source: Chart review, Patient HISTORY OF PRESENT ILLNESS HISTORY OF PRESENT ILLNESS This is an 83 yo female who presented secondary to lightheadedness and fevers. Patient reports that she has not been feeling well since Thursday. Checked her temperature yesterday and had a fever over 104 so she decided to come to the ED for further evaluation and treatment. Was noted in AFIB with RVR in ED, which is a new finding for her. Denies any chest pain, palpitations, shortness of breath, or nausea/vomiting. Has a history of lymphoma and is being treated with chemotherapy PAST MEDICAL HISTORY Cardiovascular: HTN GI: GERD Heme/Onc: Anemia NOS, Other (lymphoma ) Musculoskeletal: Osteoarthritis Endocrine: Diabetes PAST SURGICAL HISTORY Past Surgical History: Cholecystectomy, Cataract Removal FAMILY HISTORY Family History: Cancer, Diabetes, Hypertension SOCIAL HISTORY Smoke: No ALCOHOL: none Drugs: None CURRENT MEDICATIONS CURRENT MEDICATIONS Current Medications Medications (Trade) Dose Ordered Sig/Valarie Route PRN Reason Start Time Stop Time Status Last Admin Dose Admin Ceftriaxone Sodium (Rocephin) 2 gm 1X ONCE IVP 12/05/18 20:00 12/05/18 20:04 DC 12/05/18 20:35 Sodium Chloride 1,000 ml @ 1,620 mls/hr Q38M IV 12/05/18 20:00 12/05/18 21:00 DC 12/05/18 20:00 Acetaminophen (Tylenol) 650 mg 1X ONCE PO 12/05/18 20:00 12/05/18 20:04 DC 12/05/18 20:34 Diltiazem HCl (Cardizem Iv Push) 10 mg 1X ONCE IVP 12/05/18 20:30 12/05/18 20:31 DC 12/05/18 20:36 Doxycycline Hyclate 100 mg/ Dextrose 100 ml @ 50 mls/hr 1X ONCE IV 12/05/18 21:00 12/05/18 22:59 DC 12/05/18 21:07 Magnesium Sulfate/ Dextrose 100 ml @ 100 mls/hr 1X ONCE IV 12/05/18 21:15 12/05/18 22:14 DC 12/05/18 21:27 Potassium Chloride/Water 100 ml @ 100 mls/hr Q1H IV 12/05/18 21:15 12/05/18 23:14 DC 12/05/18 23:17 Diltiazem HCl 125 mg/Dextrose 125 ml @ 5 mls/hr 1X ONCE IV 12/05/18 21:30 12/06/18 22:29 12/05/18 21:27 Sodium Chloride 1,000 ml @ 75 mls/hr [id number] IV 12/05/18 22:00 12/06/18 21:59 12/05/18 23:18 Potassium Chloride (Klor-Con) 40 meq 1X ONCE PO 12/06/18 06:15 12/06/18 06:16 DC 12/06/18 06:27 Enoxaparin Sodium (Lovenox 30mg Syringe) 30 mg Q24H SQ 12/06/18 08:15 12/06/18 09:02 Doxycycline Hyclate 100 mg/ Dextrose 100 ml @ 50 mls/hr Q12HR IV 12/06/18 09:00 12/06/18 09:03 Aspirin (Ecotrin) 81 mg DAILY08 PO 12/06/18 09:00 12/06/18 09:00 Calcium Polycarbophil (Fibercon) 625 mg DAILY PO 12/06/18 09:00 12/06/18 09:00 Ferrous Sulfate (Feosol) 325 mg DAILY08 PO 12/06/18 09:00 12/06/18 09:00 Vitamin D (Vitamin D3) 1,000 unit DAILY PO 12/06/18 09:00 12/06/18 09:00 Metoprolol Tartrate (Lopressor) 100 mg BID PO 12/06/18 09:00 12/06/18 09:03 Pantoprazole Sodium (Protonix) 40 mg DAILYAC PO 12/06/18 09:00 12/06/18 09:00 ALLERGIES ALLERGIES: Coded Allergies: No Known Allergies (Verified Allergy, Unknown, 05/04/18) ROS Review of System 14 point ROS conducted with pertinent positives noted above in HPI. PHYSICAL EXAM General: Alert, Oriented X3, Cooperative, No acute distress HEENT: Atraumatic Lungs: Clear to auscultation Heart: Other (IRRR, AFIB rate 75. 2/6 systolic murmur ) Abdomen: Soft, No tenderness Extremities: No cyanosis, No edema, Normal pulses Skin: No significant lesion Neuro: Normal speech, Sensation intact Psych/Mental Status: Mental status NL, Mood NL MUSCULOSKELETAL: Osteoarthritic changes both hands VITALS/I&O VITALS/I&O: Vital Signs Date Time Temp Pulse Resp B/P (MAP) Pulse Ox O2 Delivery O2 Flow Rate FiO2 12/06/18 09:03 101 110/52 12/06/18 07:00 98.0 20 97 Room Air 98.0 I & O 12/05/18 12/05/18 12/06/18 14:59 22:59 06:59 Intake Total 0 ml Balance 0 ml LABS Lab: Laboratory Tests Test 12/05/18 20:20 12/05/18 20:30 12/06/18 03:00 White Blood Count 3.6 x10^3/uL (4.0-11.0) L Red Blood Count 3.59 x10^6/uL (3.50-5.40) Hemoglobin 10.0 g/dL (12.0-15.5) L Hematocrit 29.5 % (36.0-47.0) L Mean Corpuscular Volume 82 fL (79-100) Mean Corpuscular Hemoglobin 28 pg (25-35) Mean Corpuscular Hemoglobin Concent 34 g/dL (31-37) Red Cell Distribution Width 14.9 % (11.5-14.5) H Platelet Count 232 x10^3/uL (140-400) Neutrophils (%) (Auto) 5 % (31-73) L Lymphocytes (%) (Auto) 16 % (24-48) L Monocytes (%) (Auto) 78 % (0-9) H Eosinophils (%) (Auto) 0 % (0-3) Basophils (%) (Auto) 0 % (0-3) Neutrophils # (Auto) 0.2 x10^3/uL (1.8-7.7) L Lymphocytes # (Auto) 0.6 x10^3/uL (1.0-4.8) L Monocytes # (Auto) 2.8 x10^3/uL (0.0-1.1) H Eosinophils # (Auto) 0.0 x10^3/uL (0.0-0.7) Basophils # (Auto) 0.0 x10^3/uL (0.0-0.2) Platelet Estimate Pending Prothrombin Time 15.4 SEC (11.7-14.0) H Prothrombin Time INR 1.3 (0.8-1.1) H Sodium Level 125 mmol/L (136-145) L 129 mmol/L (136-145) L Potassium Level 3.3 mmol/L (3.5-5.1) L 3.3 mmol/L (3.5-5.1) L Chloride Level 91 mmol/L (98-107) L 96 mmol/L (98-107) L Carbon Dioxide Level 19 mmol/L (21-32) L 18 mmol/L (21-32) L Anion Gap 15 (6-14) H 15 (6-14) H Blood Urea Nitrogen 36 mg/dL (7-20) H 31 mg/dL (7-20) H Creatinine 1.5 mg/dL (0.6-1.0) H 1.4 mg/dL (0.6-1.0) H Estimated GFR (Cockcroft-Gault) 33.2 36.0 BUN/Creatinine Ratio 24 (6-20) H Glucose Level 95 mg/dL (70-99) 100 mg/dL (70-99) H Lactic Acid Level 1.4 mmol/L (0.4-2.0) Calcium Level 8.4 mg/dL (8.5-10.1) L 7.9 mg/dL (8.5-10.1) L Magnesium Level 1.6 mg/dL (1.8-2.4) L Total Bilirubin 1.2 mg/dL (0.2-1.0) H Aspartate Amino Transferase (AST) 16 U/L (15-37) Alanine Aminotransferase (ALT) 37 U/L (14-59) Alkaline Phosphatase 78 U/L (46-116) Troponin I Quantitative < 0.017 ng/mL (0.000-0.055) AV-Xvh-A-Type Natriuretic Peptide 8947 pg/mL (0-449) H Total Protein 6.6 g/dL (6.4-8.2) Albumin 2.7 g/dL (3.4-5.0) L Albumin/Globulin Ratio 0.7 (1.0-1.7) L Lipase 46 U/L (73-393) L Urine Collection Type U cath Urine Color Eul[place] Urine Clarity Clear Urine pH 5.5 Urine Specific [place] 1.020 Urine Protein >=300 mg/dL (NEG-TRACE) Urine Glucose (UA) Negative mg/dL (NEG) Urine Ketones (Stick) Trace mg/dL (NEG) Urine Blood Negative (NEG) Urine Nitrite Negative (NEG) Urine Bilirubin Small (NEG) Urine Urobilinogen Dipstick 1.0 mg/dL (0.2 mg/dL) Urine Leukocyte Esterase Negative (NEG) Urine RBC Occ /HPF (0-2) Urine WBC Occ /HPF (0-4) Urine Squamous Epithelial Cells Occ /LPF Urine Amorphous Sediment Present /HPF Urine Bacteria Few /HPF (0-FEW) Urine Mucus Slight /LPF Laboratory Tests 12/05/18 20:20 Laboratory Tests 12/05/18 20:20 12/06/18 03:00 ASSESSMENT/PLAN ASSESSMENT/PLAN 1. AFIB wtih RVR; rate controlled on Cardizem gtt 2. Leukopenia 3. Fevers, ? PNA 4. Waldenstroms/Lymphoma- treatment with Imbruvica. 5. BRITTA 6. Hypokalemia 7. Hypomagnesemia 8. Hypertension 9. Diabetes, II 10. Hyponatremia; improved with IVF Recommendations Echo to assess LV systolic function Resume metoprolol for rate control. Titrate off Cardizem gtt. Monitor rhythm [id number] score 5 correlating with a 7.2% risk for stroke per year. Start OAC for stroke prophylaxis TSH, Mg level. Replace as warranted Continue antibiotic therapy Supportive care Consider outpatient CV following 3 weeks of OAC. TERRY VOSS MD 12/06/18 1844: CARDIAC CONSULT ASSESSMENT/PLAN ASSESSMENT/PLAN Patient seen and examined. 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 Atrial fibrillation, new onset, rate better controlled Agree with resuming BB and stopping CCB Start eliquis for stroke prophylaxis and plan outpatient cardioversion in 4 weeks 2D echo showed normal LV function Thank you for your consultation PASCUAL BOWSER APRN Dec 06, 2018 10:16 TERRY VOSS MD Dec 06, 2018 18:44
[2018-12-06 10:42] LABS: % BANDS 4 % (0-9); % LYMPHS 24 % (24-48); % MONOS 70 % (0-10); % SEGS 2 % (35-66)
[2018-12-06 10:43] LABS: PLT ESTIMATE ADEQUATE (ADEQUATE); POLYCHROMASIA PRESENT
[2018-12-06 10:45] LABS: WHITE BLOOD COUNT 3.6 x10^3/uL (4.0-11.0)
[2018-12-06] MEDS: IV NORMAL SALINE 1000ML BAG 1,000 ML IV SCH (10:54)
[2018-12-06] MEDS ORDERED: IBRUTINIB 140 MG PO SCH (11:00)
[2018-12-06 11:06] LABS: CHOLESTEROL/HDL RATIO 4.5
--- NOTE | 2018-12-06 12:12 | CARD ---
MR#: [id number] Date of Study: 12/06/2018 Ordering Physician: PASCUAL BOWSER, Referring Physician: JOSE HERNÁNDEZ Tech: Rosana Reyes SWAPNIL APPROVED REPORT EXAM: Two-dimensional and M-mode echocardiogram with Doppler and color Doppler. Other Information Quality : AverageHR: 73bpm Rhythm : Atrial Fibrillation INDICATION Atrial Fibrillation 2D DIMENSIONS RVDd3.0 (2.9-3.5cm)Left Atrium(2D)4.0 (1.6-4.0cm) IVSd0.9 (0.7-1.1cm)Aortic Root(2D)2.3 (2.0-3.7cm) LVDd4.3 (3.9-5.9cm)LVOT Diameter1.7 (1.8-2.4cm) PWd1.0 (0.7-1.1cm)LVDs2.7 (2.5-4.0cm) FS (%) 35.7 %SV53.1 ml LVEF(%)65.5 (>50%) M-Mode DIMENSIONS Left Atrium(MM)4.56 (2.5-4.0cm)Aortic Root2.64 (2.2-3.7cm) Aortic Valve AoV Peak Richy.148.6cm/sAoV VTI30.8cm AO Peak GR.8.8mmHgLVOT Peak Richy.85.2cm/s AO Mean GR.5mmHgAVA (VMAX)1.29cm2 ELIDA (VTI)1.40cm2 Mitral Valve MV E Dmjusxxj988.1cm/sMV DECEL [id number] MV A Mpigfdye70.8cm/sE/A Ratio5.2 Pulmonary Valve PV Peak Yambtbhc47.7cm/s Tricuspid Valve TR P. Pkenplfk533oc/sRAP BORUGBFM3lvIn TR Peak Gr.16ibBiEWKV39seCk LEFT VENTRICLE The left ventricle is normal size. There is normal left ventricular wall thickness. The left ventricu lar systolic function is normal. The Ejection Fraction is 60-65%. There is normal LV segmental wall m otion. RIGHT VENTRICLE The right ventricle is normal size. There is normal right ventricular wall thickness. The right ventr icular systolic function is normal. ATRIA The left atrium is mild to moderately dilated. The right atrium size is normal. The interatrial septu m is intact with no evidence for an atrial septal defect or patent foramen ovale as noted on 2-D or D oppler imaging. AORTIC VALVE The aortic valve is trileaflet. The aortic valve is mildly calcified. Doppler and Color Flow revealed no significant aortic regurgitation. There is no significant aortic valvular stenosis. MITRAL VALVE The mitral valve is thickened and calcifed but opens well. There is no evidence of mitral valve prola pse. There is no mitral valve stenosis. Doppler and Color-flow revealed mild to moderate mitral regur gitation. TRICUSPID VALVE The tricuspid valve is normal in structure and function. Doppler and Color Flow revealed mild tricusp id regurgitation. The PA pressure was estimated at 37 mmHg. There is no tricuspid valve prolapse or v egetation. There is no tricuspid valve stenosis. PULMONIC VALVE The pulmonic valve is not well visualized. GREAT VESSELS The aortic root is normal in size. The ascending aorta is normal in size. The IVC is normal in size a nd collapses >50% with inspiration. PERICARDIAL EFFUSION There is no evidence of significant pericardial effusion. Critical Notification Critical Value: No <Conclusion> The left ventricular systolic function is normal. The Ejection Fraction is 60-65%. There is normal LV segmental wall motion. Mild to moderate mitral regurgitation. Mild tricuspid regurgitation. The PA pressure was estimated at 37 mmHg. There is no evidence of significant pericardial effusion. Signed by : Adriel García, Electronically Approved : 12/06/2018 12:11:38
--- NOTE | 2018-12-06 13:23 | NUR ---
SS following for discharge planning. SS reviewed pt chart. Pt is from home and is currently on room air. No discharge needs noted at this time. SS will continue to follow for discharge planning.
[2018-12-06] MEDS ORDERED: MAGNESIUM SULFATE 2GM 50 ML IV ONE (16:30)
--- NOTE | 2018-12-06 19:35 | NUR ---
Pt in bed assessment completed vss poc explained pt denies pain at this time call light in reach will resume care and continue to monitor pt.
[2018-12-06] MEDS ORDERED: APIXABAN 5 MG TABLET. PO SCH (21:00)
[2018-12-06] MEDS: NIACIN ER 500 MG TABLET.ER PO SCH (21:14)
[2018-12-06 23:12] LABS: HEMOGLOBIN A1C 5.7 % (4.8-5.6)
[2018-12-07 03:39] VITALS: BP 140/72
--- NOTE | 2018-12-07 04:39 | CONS ---
DATE OF CONSULTATION: 12/06/2018 MEDICAL ONCOLOGY REPORT REQUESTING PHYSICIAN: Marcelle Maravilla MD REASON FOR CONSULTATION: Waldenstrom macroglobulinemia, on Imbruvica. HISTORY OF PRESENT ILLNESS: The patient is an 83-year-old female who was diagnosed with Waldenstrom macroglobulinemia when she had a bone marrow biopsy on 01/11/2018. MYD88 was positive. IgM kappa level was high [place] 4380. CT scan on 01/22/2018 did not reveal any lymphadenopathy. Bone marrow biopsy revealed lymphoplasmacytic lymphoma. She underwent plasmapheresis intermittently for IgM levels greater than 3000 and she received rituximab x 8 treatments in spring. She then received ibrutinib from 08/2018 due to rising IgM level of more than 4 g despite rituximab. She was admitted to [facility] on 12/05/2018 with fever of 104 degrees and intermittent nonproductive cough. She underwent a chest x-ray that revealed peribronchial cuffing, which may indicate bronchitis. Reticulonodular densities at the lower lobes could be indicative of pneumonia. She was started on antibiotics and I was asked to see the patient for Dr. Bekah Osuna for management of Waldenstrom macroglobulinemia. PAST MEDICAL HISTORY: Diabetes, diverticulosis, GERD, hiatal hernia, hyperlipidemia, hypertension, hemorrhoids, iron deficiency anemia, osteoarthritis, osteoporosis, vitamin D deficiency. FAMILY HISTORY: Positive for ovarian cancer. SOCIAL HISTORY: No smoking or alcohol abuse. REVIEW OF SYSTEMS: A 12-point review of system was performed. Pertinent positives are mentioned in the history of present illness. Rest of the system review is negative. PHYSICAL EXAMINATION: GENERAL APPEARANCE: The patient is an 83-year-old female who is in no acute cardiorespiratory distress. VITAL SIGNS: Blood pressure 97/56, temperature 97.4. HEAD: Atraumatic, normocephalic. EYES: No icterus. NECK: Supple. CHEST: Bilaterally symmetrical. HEART: S1, S2 normal. ABDOMEN: Soft, nontender. CENTRAL NERVOUS SYSTEM: No focal deficits. LYMPHATICS: No lymphadenopathy. SKIN: No rashes. PSYCHOLOGIC: Mood and affect are appropriate. MUSCULOSKELETAL: No joint effusions. LABORATORY DATA: WBC 3.6, hemoglobin 10, platelet count 232, bands 4%. Proceed with cycle #8 on 12/07/2018. Creatinine is 1.4. IMPRESSION AND PLAN: 1. Waldenstrom macroglobulinemia. She is on treatment with Imbruvica 420 mg daily. Imbruvica increases the risk of pneumonia. In view of current ongoing infection and pneumonia, I have advised her to hold Imbruvica and resume upon discharge if she continues to improve. She understands and agrees with the plan. 2. Pneumonia. Continue management per primary care team. 3. Anemia. Hemoglobin is 10. No signs of bleeding. Continue to monitor. VIRGINIA VALDOVINOS MD DR: HORACE/yelena JOB#: [id number] / [id number]
[2018-12-07 05:51] LABS: BASO % 1 % (0-3); EOS # 0.2 x10^3/uL (0.0-0.7); EOS % 3 % (0-3); HEMATOCRIT 30.4 % (36.0-47.0); HEMOGLOBIN 10.1 g/dL (12.0-15.5); LYMPH # 2.5 x10^3/uL (1.0-4.8); LYMPH % 42 % (24-48); MEAN CORPUSCULAR HEMOGLOBIN 27 pg (25-35); MEAN CORPUSCULAR HGB CONC 33 g/dL (31-37); MEAN CORPUSCULAR VOLUME 81 fL (79-100); MONO # 1.5 x10^3/uL (0.0-1.1); MONO % 24 % (0-9); NEUT # 1.9 x10^3/uL (1.8-7.7); NEUT % 31 % (31-73); PLATELET COUNT 297 x10^3/uL (140-400); RED BLOOD COUNT 3.74 x10^6/uL (3.50-5.40); RED CELL DISTRIBUTION WIDTH 15.1 % (11.5-14.5); WHITE BLOOD COUNT 6.1 x10^3/uL (4.0-11.0)
[2018-12-07 06:00] LABS: CALCIUM 8.4 mg/dL (8.5-10.1); GFR 53.1; POTASSIUM 3.6 mmol/L (3.5-5.1)
[2018-12-07] MEDS: PANTOPRAZOLE 40 MG TABLET.DR. PO SCH (06:17)
--- NOTE | 2018-12-07 06:31 | EKG ---
[facility] [address] [place] [address] Test Date: 2018-12-05 Test Time: 19:57:11 Pat Name: ROXANA ROMERO Department: Room: Gender: F Bankman: : 1935 Requested By: NUBIA TOVAR Order Number: [id number] Reading MD: Measurements Intervals [place] Rate: 132 P: 0 [place]: 138 QRS: 28 QRSD: 82 T: 156 QT: 250 QTc: 373 Interpretive Statements SINUS TACHYCARDIA ATRIAL PREMATURE COMPLEX(ES) INTERPOLATED ATRIAL PREMATURE COMPLEX(ES) ST & T ABNORMALITY, CONSIDER ANTEROLATERAL ISCHEMIA OR LEFT VENTRICULAR STRAIN INFEROLATERAL ISCHEMIA OR LEFT VENTRICULAR STRAIN ABNORMAL ECG RI6.01 Unconfirmed report No previous ECG available for comparison
[2018-12-07 07:00] VITALS: BP 123/66
--- NOTE | 2018-12-07 08:04 | PDOC ---
SUBJECTIVE Subjective Pt states that she is feeling well. Pt was up going to the bathroom when I saw her with heart rates in the 140s to 150s but was asymptomatic. Denied palpitations, shortness of breath or dizziness. OBJECTIVE Vital Signs Vital Signs Date Time Temp Pulse Resp B/P (MAP) Pulse Ox O2 Delivery O2 Flow Rate FiO2 12/07/18 07:00 98.1 116 16 123/66 (85) 97 Room Air 98.1 12/07/18 03:39 97.9 87 16 140/72 (94) 98 97.9 12/06/18 22:45 98.2 77 20 108/58 (75) 95 Room Air 98.2 12/06/18 21:15 108 116/69 12/06/18 19:00 98.6 108 18 116/69 (85) 96 Room Air 98.6 12/06/18 14:39 97.5 89 24 113/64 (80) 96 Room Air 97.5 12/06/18 10:51 97.4 74 16 97/56 (70) 96 Room Air 97.4 12/06/18 09:03 101 110/52 12/06/18 08:00 Room Air I & O Intake and Output 12/07/18 07:00 Intake Total 760 ml Output Total 2375 ml Balance -1615 ml Intake Oral 760 ml Output Urine Total 2375 ml # Bowel Movements 2 PHYSICAL EXAM Physical Exam GEN.: No apparent distress. Alert and oriented. HEENT: Head is normocephalic, atraumatic NECK: Supple. LUNGS: Clear to auscultation. HEART: tachycardic, S1, S2 present. Peripheral pulses intact ABDOMEN: Soft, nontender. Positive bowel sounds. EXTREMITIES: Without any cyanosis. NEUROLOGIC: Normal speech, normal tone PSYCHIATRIC: Normal affect, normal mood. SKIN: No ulcerations ASSESSMENT/PLAN Assessment/Plan Pt is a 83yo CF admitted for neutropenic fever and afib with RVR 1)Neutropenic fever- pt being treated for pneumonia. WBC improved, pt now afebrile. Will transition to po Doxycycline. Heme/Onc following as well. 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 Heme/Onc holding for the next 3-4 days. Pt to resume if she is feeling well. 3)Afib with RVR- new onset. Cardiology following. Pt still tachycardic. Pt resumed on home medications of Metoprolol 100mg BID. Started on Eliquis. Outpatient Cardioversion in 4 weeks 4)HTN- well controlled with Metoprolol. Pt's Losartan currently being held. 5)BRITTA- prerenal, resolved with IVF hydration. 6)Prediabetes- will hold pt's Metformin 7)HLD- pt's niacin continued 8)Anemia- Hb currently stable and improved from previous admissions. Pt continued on Ferrous Sulfate 9)Hyponatremia- improving with IVF hydration. CTM 10)Hypokalemia- replaced and resolved 11)PEM- moderate COMMENT Lab Laboratory Tests Test 12/07/18 05:00 White Blood Count 6.1 x10^3/uL (4.0-11.0) Red Blood Count 3.74 x10^6/uL (3.50-5.40) Hemoglobin 10.1 g/dL (12.0-15.5) Hematocrit 30.4 % (36.0-47.0) Mean Corpuscular Volume 81 fL (79-100) Mean Corpuscular Hemoglobin 27 pg (25-35) Mean Corpuscular Hemoglobin Concent 33 g/dL (31-37) Red Cell Distribution Width 15.1 % (11.5-14.5) Platelet Count 297 x10^3/uL (140-400) Neutrophils (%) (Auto) 31 % (31-73) Lymphocytes (%) (Auto) 42 % (24-48) Monocytes (%) (Auto) 24 % (0-9) Eosinophils (%) (Auto) 3 % (0-3) Basophils (%) (Auto) 1 % (0-3) Neutrophils # (Auto) 1.9 x10^3/uL (1.8-7.7) Lymphocytes # (Auto) 2.5 x10^3/uL (1.0-4.8) Monocytes # (Auto) 1.5 x10^3/uL (0.0-1.1) Eosinophils # (Auto) 0.2 x10^3/uL (0.0-0.7) Basophils # (Auto) 0.0 x10^3/uL (0.0-0.2) Sodium Level 134 mmol/L (136-145) Potassium Level 3.6 mmol/L (3.5-5.1) Chloride Level 103 mmol/L (98-107) Carbon Dioxide Level 20 mmol/L (21-32) Anion Gap 11 (6-14) Blood Urea Nitrogen 22 mg/dL (7-20) Creatinine 1.0 mg/dL (0.6-1.0) Estimated GFR (Cockcroft-Gault) 53.1 Glucose Level 108 mg/dL (70-99) Calcium Level 8.4 mg/dL (8.5-10.1) TERRELL AGARWAL MD Dec 07, 2018 08:03
[2018-12-07] MEDS: DOXYCYCLINE HYCLATE 100 MG TABLET PO SCH ×2 (08:36→20:32)
[2018-12-07] MEDS: CHOLECALCIFEROL (VITAMIN D3) 1,000 UNIT TABLET PO SCH (08:37)
[2018-12-07] MEDS: CALCIUM POLYCARBOPHIL 625 MG TABLET PO SCH (08:37)
[2018-12-07] MEDS: ASPIRIN ENTERIC COATED 81 MG TABLET.DR. PO SCH (08:37)
[2018-12-07] MEDS: FERROUS SULFATE 325 MG TABLET. PO SCH (08:37)
[2018-12-07] MEDS: APIXABAN 2.5 MG TABLET. PO SCH ×2 (08:37→20:32)
[2018-12-07] MEDS: METOPROLOL TART IMMED RELEASE 50 MG TABLET. PO SCH ×2 (08:39→20:33)
[2018-12-07 10:58] VITALS: BP 125/74
[2018-12-07] MEDS ORDERED: DIGOXIN IV 500 MCG/2 ML AMPUL. IV ONE (14:15)
--- NOTE | 2018-12-07 14:15 | PDOC ---
VIRGINIE VELÁZQUEZ BEHAVIORAL CONSULTANT 12/07/18 1415: CARDIO Progress Notes Date and Time Date of Service 12/07/2018 Time of Evaluation 1300 Subjective Subjective: No Chest Pain, No shortness of breath, No Palpitations Vitals Vitals Vital Signs Date Time Temp Pulse Resp B/P (MAP) Pulse Ox O2 Delivery O2 Flow Rate FiO2 12/07/18 10:58 97.7 106 18 125/74 (91) 97 Room Air 97.7 Weight Weight [ ] Input and Output Intake and Output Intake and Output 12/07/18 07:00 Intake Total 760 ml Output Total 2375 ml Balance -1615 ml Intake Oral 760 ml Output Urine Total 2375 ml # Bowel Movements 2 Laboratory Labs Laboratory Tests Test 12/07/18 05:00 White Blood Count 6.1 x10^3/uL (4.0-11.0) Red Blood Count 3.74 x10^6/uL (3.50-5.40) Hemoglobin 10.1 g/dL (12.0-15.5) Hematocrit 30.4 % (36.0-47.0) Mean Corpuscular Volume 81 fL (79-100) Mean Corpuscular Hemoglobin 27 pg (25-35) Mean Corpuscular Hemoglobin Concent 33 g/dL (31-37) Red Cell Distribution Width 15.1 % (11.5-14.5) Platelet Count 297 x10^3/uL (140-400) Neutrophils (%) (Auto) 31 % (31-73) Lymphocytes (%) (Auto) 42 % (24-48) Monocytes (%) (Auto) 24 % (0-9) Eosinophils (%) (Auto) 3 % (0-3) Basophils (%) (Auto) 1 % (0-3) Neutrophils # (Auto) 1.9 x10^3/uL (1.8-7.7) Lymphocytes # (Auto) 2.5 x10^3/uL (1.0-4.8) Monocytes # (Auto) 1.5 x10^3/uL (0.0-1.1) Eosinophils # (Auto) 0.2 x10^3/uL (0.0-0.7) Basophils # (Auto) 0.0 x10^3/uL (0.0-0.2) Sodium Level 134 mmol/L (136-145) Potassium Level 3.6 mmol/L (3.5-5.1) Chloride Level 103 mmol/L (98-107) Carbon Dioxide Level 20 mmol/L (21-32) Anion Gap 11 (6-14) Blood Urea Nitrogen 22 mg/dL (7-20) Creatinine 1.0 mg/dL (0.6-1.0) Estimated GFR (Cockcroft-Gault) 53.1 Glucose Level 108 mg/dL (70-99) Calcium Level 8.4 mg/dL (8.5-10.1) Microbiology Micro Microbiology 12/05/18 Blood Culture - Preliminary, Resulted NO GROWTH AFTER 1 DAY Physical Exam HEENT: Neck Supple W Full Motion Chest: Symmetric LUNGS: Clear to Auscultation Heart: irregularly irregular (AFIB) Abdomen: Soft N/T Extremities: No Calf Tenderness Neurology: alert, oriented, follow commands Assessment Assessment 1. AFIB with RVR; HR 100-120 at rest. EF and WM nml 2. Waldenstroms/Lymphoma- treatment with Imbruvica. Hemonc following 3. BRITTA likely on CKD3: +for macroalbuminuria. Cr better. 6. Hypokalemia 7. Hypomagnesemia 8. Hypertension 9. Diabetes, II: lipids on goal 10. Hyponatremia; improved with IVF 11. Mild to mod MR Recommendations 1. Mg and replace as warranted 2. Will need at least low dose ACEi or ARB moving forward for CKD/DM 3. Continue metoprolol. Digoxin IV x1. If remains with elevated HR then will place on routine Dig. 4. Low dose eliquis per guideline recommendation 5. Consider outpatient CV following 3 weeks of OAC. TERRY VOSS MD 12/07/18 1743: CARDIO Progress Notes Assessment Assessment Patient seen and examined. Agree with STABLE ATTENDANT's assessment and plan. Atrial fibrillation rate better controlled but still slightly elevated - agree with digoxin in addition to metoprolol 2-D echo showed normal LV function Plan outpatient cardioversion in 3-4 weeks VIRGINIE VELÁZQUEZ APRN Dec 07, 2018 14:15 TERRY VOSS MD Dec 07, 2018 17:43
--- NOTE | 2018-12-07 14:33 | PDOC ---
PROGRESS NOTES Subjective Subjective HPI - f/u of Waldenstrom macroglobulinemia ROS - no CP Objective Objective Vital Signs Date Time Temp Pulse Resp B/P (MAP) Pulse Ox O2 Delivery O2 Flow Rate FiO2 12/07/18 10:58 97.7 106 18 125/74 (91) 97 Room Air 97.7 Intake and Output 12/07/18 06:59 Intake Total 760 ml Output Total 2375 ml Balance -1615 ml Intake Oral 760 ml Output Urine Total 2375 ml # Bowel Movements 2 Physical Exam Heart: Normal S1, Normal S2 General: Alert, Oriented X3 Lungs: Clear to auscultation Neuro: Normal speech Psych/Mental Status: Mental status NL Assessment Assessment IMPRESSION AND PLAN: 1. Waldenstrom macroglobulinemia. She is on treatment with Imbruvica 420 mg daily. Imbruvica increases the risk of pneumonia. In view of current ongoing infection and pneumonia, I have advised her to hold Imbruvica and resume upon discharge if she continues to improve. She understands and agrees with the plan. 2. Pneumonia. Continue management per primary care team. 3. Anemia. Hemoglobin is 10.1. No signs of bleeding. Continue to monitor. 4. Atrial fibrillation, new onset, management per cardiology. Imbruvica increases the risk of a.fib. Comment Review of Relevant I have reviewed the following items mati (where applicable) has been applied. Labs Laboratory Tests Test 12/05/18 20:20 12/05/18 20:30 12/06/18 03:00 12/07/18 05:00 White Blood Count 3.6 x10^3/uL (4.0-11.0) 6.1 x10^3/uL (4.0-11.0) Red Blood Count 3.59 x10^6/uL (3.50-5.40) 3.74 x10^6/uL (3.50-5.40) Hemoglobin 10.0 g/dL (12.0-15.5) 10.1 g/dL (12.0-15.5) Hematocrit 29.5 % (36.0-47.0) 30.4 % (36.0-47.0) Mean Corpuscular Volume 82 fL (79-100) 81 fL (79-100) Mean Corpuscular Hemoglobin 28 pg (25-35) 27 pg (25-35) Mean Corpuscular Hemoglobin Concent 34 g/dL (31-37) 33 g/dL (31-37) Red Cell Distribution Width 14.9 % (11.5-14.5) 15.1 % (11.5-14.5) Platelet Count 232 x10^3/uL (140-400) 297 x10^3/uL (140-400) Neutrophils (%) (Auto) 5 % (31-73) 31 % (31-73) Lymphocytes (%) (Auto) 16 % (24-48) 42 % (24-48) Monocytes (%) (Auto) 78 % (0-9) 24 % (0-9) Eosinophils (%) (Auto) 0 % (0-3) 3 % (0-3) Basophils (%) (Auto) 0 % (0-3) 1 % (0-3) Neutrophils # (Auto) 0.2 x10^3/uL (1.8-7.7) 1.9 x10^3/uL (1.8-7.7) Lymphocytes # (Auto) 0.6 x10^3/uL (1.0-4.8) 2.5 x10^3/uL (1.0-4.8) Monocytes # (Auto) 2.8 x10^3/uL (0.0-1.1) 1.5 x10^3/uL (0.0-1.1) Eosinophils # (Auto) 0.0 x10^3/uL (0.0-0.7) 0.2 x10^3/uL (0.0-0.7) Basophils # (Auto) 0.0 x10^3/uL (0.0-0.2) 0.0 x10^3/uL (0.0-0.2) Segmented Neutrophils % 2 % (35-66) Band Neutrophils % 4 % (0-9) Lymphocytes % 24 % (24-48) Monocytes % 70 % (0-10) Platelet Estimate Adequate (ADEQUATE) Polychromasia Present Prothrombin Time 15.4 SEC (11.7-14.0) Prothromb Time International Ratio 1.3 (0.8-1.1) Sodium Level 125 mmol/L (136-145) 129 mmol/L (136-145) 134 mmol/L (136-145) Potassium Level 3.3 mmol/L (3.5-5.1) 3.3 mmol/L (3.5-5.1) 3.6 mmol/L (3.5-5.1) Chloride Level 91 mmol/L (98-107) 96 mmol/L (98-107) 103 mmol/L (98-107) Carbon Dioxide Level 19 mmol/L (21-32) 18 mmol/L (21-32) 20 mmol/L (21-32) Anion Gap 15 (6-14) 15 (6-14) 11 (6-14) Blood Urea Nitrogen 36 mg/dL (7-20) 31 mg/dL (7-20) 22 mg/dL (7-20) Creatinine 1.5 mg/dL (0.6-1.0) 1.4 mg/dL (0.6-1.0) 1.0 mg/dL (0.6-1.0) Estimated GFR (Cockcroft-Gault) 33.2 36.0 53.1 BUN/Creatinine Ratio 24 (6-20) Glucose Level 95 mg/dL (70-99) 100 mg/dL (70-99) 108 mg/dL (70-99) Lactic Acid Level 1.4 mmol/L (0.4-2.0) Calcium Level 8.4 mg/dL (8.5-10.1) 7.9 mg/dL (8.5-10.1) 8.4 mg/dL (8.5-10.1) Magnesium Level 1.6 mg/dL (1.8-2.4) 1.6 mg/dL (1.8-2.4) Total Bilirubin 1.2 mg/dL (0.2-1.0) Aspartate Amino Transf (AST/SGOT) 16 U/L (15-37) Alanine Aminotransferase (ALT/SGPT) 37 U/L (14-59) Alkaline Phosphatase 78 U/L (46-116) Troponin I Quantitative < 0.017 ng/mL (0.000-0.055) MT-Ctd-R-Type Natriuretic Peptide 8947 pg/mL (0-449) Total Protein 6.6 g/dL (6.4-8.2) Albumin 2.7 g/dL (3.4-5.0) Albumin/Globulin Ratio 0.7 (1.0-1.7) Lipase 46 U/L (73-393) Urine Collection Type U cath Urine Color [place] Urine Clarity Clear Urine pH 5.5 Urine Specific [place] 1.020 Urine Protein >=300 mg/dL (NEG-TRACE) Urine Glucose (UA) Negative mg/dL (NEG) Urine Ketones (Stick) Trace mg/dL (NEG) Urine Blood Negative (NEG) Urine Nitrite Negative (NEG) Urine Bilirubin Small (NEG) Urine Urobilinogen Dipstick 1.0 mg/dL (0.2 mg/dL) Urine Leukocyte Esterase Negative (NEG) Urine RBC Occ /HPF (0-2) Urine WBC Occ /HPF (0-4) Urine Squamous Epithelial Cells Occ /LPF Urine Amorphous Sediment Present /HPF Urine Bacteria Few /HPF (0-FEW) Urine Mucus Slight /LPF Hemoglobin A1c 5.7 % (4.8-5.6) Triglycerides Level 77 mg/dL (0-150) Cholesterol Level 100 mg/dL (0-200) LDL Cholesterol, Calculated 63 mg/dL (0-100) VLDL Cholesterol, Calculated 15 mg/dL (0-40) Non-HDL Cholesterol Calculated 78 mg/dL (0-129) HDL Cholesterol 22 mg/dL (40-60) Cholesterol/HDL Ratio 4.5 Thyroid Stimulating Hormone (TSH) 1.607 uIU/mL (0.358-3.74) Laboratory Tests Test 12/07/18 05:00 White Blood Count 6.1 x10^3/uL (4.0-11.0) Red Blood Count 3.74 x10^6/uL (3.50-5.40) Hemoglobin 10.1 g/dL (12.0-15.5) Hematocrit 30.4 % (36.0-47.0) Mean Corpuscular Volume 81 fL (79-100) Mean Corpuscular Hemoglobin 27 pg (25-35) Mean Corpuscular Hemoglobin Concent 33 g/dL (31-37) Red Cell Distribution Width 15.1 % (11.5-14.5) Platelet Count 297 x10^3/uL (140-400) Neutrophils (%) (Auto) 31 % (31-73) Lymphocytes (%) (Auto) 42 % (24-48) Monocytes (%) (Auto) 24 % (0-9) Eosinophils (%) (Auto) 3 % (0-3) Basophils (%) (Auto) 1 % (0-3) Neutrophils # (Auto) 1.9 x10^3/uL (1.8-7.7) Lymphocytes # (Auto) 2.5 x10^3/uL (1.0-4.8) Monocytes # (Auto) 1.5 x10^3/uL (0.0-1.1) Eosinophils # (Auto) 0.2 x10^3/uL (0.0-0.7) Basophils # (Auto) 0.0 x10^3/uL (0.0-0.2) Sodium Level 134 mmol/L (136-145) Potassium Level 3.6 mmol/L (3.5-5.1) Chloride Level 103 mmol/L (98-107) Carbon Dioxide Level 20 mmol/L (21-32) Anion Gap 11 (6-14) Blood Urea Nitrogen 22 mg/dL (7-20) Creatinine 1.0 mg/dL (0.6-1.0) Estimated GFR (Cockcroft-Gault) 53.1 Glucose Level 108 mg/dL (70-99) Calcium Level 8.4 mg/dL (8.5-10.1) Microbiology 12/05/18 Blood Culture - Preliminary, Resulted NO GROWTH AFTER 1 DAY Medications Current Medications Ceftriaxone Sodium (Rocephin) 2 gm 1X ONCE IVP Last administered on 12/05/18at 20:35; Start 12/05/18 at 20:00; Stop 12/05/18 at 20:04; Status DC Sodium Chloride 1,000 ml @ 1,620 mls/hr Q38M IV Last administered on 12/05/18at 20:00; Start 12/05/18 at 20:00; Stop 12/05/18 at 21:00; Status DC Acetaminophen (Tylenol) 650 mg 1X ONCE PO Last administered on 12/05/18at 20:34; Start 12/05/18 at 20:00; Stop 12/05/18 at 20:04; Status DC Diltiazem HCl (Cardizem Iv Push) 10 mg 1X ONCE IVP Last administered on 12/05/18at 20:36; Start 12/05/18 at 20:30; Stop 12/05/18 at 20:31; Status DC Doxycycline Hyclate 100 mg/ Dextrose 100 ml @ 50 mls/hr 1X ONCE IV Last administered on 12/05/18at 21:07; Start 12/05/18 at 21:00; Stop 12/05/18 at 22:59; Status DC Magnesium Sulfate/ Dextrose 100 ml @ 100 mls/hr 1X ONCE IV Last administered on 12/05/18at 21:27; Start 12/05/18 at 21:15; Stop 12/05/18 at 22:14; Status DC Potassium Chloride/Water 100 ml @ 100 mls/hr Q1H IV Last administered on 12/05/18at 23:17; Start 12/05/18 at 21:15; Stop 12/05/18 at 23:14; Status DC Diltiazem HCl 125 mg/Dextrose 125 ml @ 5 mls/hr 1X ONCE IV Last administered on 12/05/18at 21:27; Start 12/05/18 at 21:30; Stop 12/06/18 at 22:29; Status DC Sodium Chloride 1,000 ml @ 75 mls/hr [id number] IV Last administered on 12/06/18at 10:54; Start 12/05/18 at 22:00; Stop 12/06/18 at 21:59; Status DC Potassium Chloride (Klor-Con) 40 meq 1X ONCE PO Last administered on 12/06/18at 06:27; Start 12/06/18 at 06:15; Stop 12/06/18 at 06:16; Status DC Enoxaparin Sodium (Lovenox 30mg Syringe) 30 mg Q24H SQ Last administered on 12/06/18at 09:02; Start 12/06/18 at 08:15; Stop 12/06/18 at 16:59; Status DC Doxycycline Hyclate 100 mg/ Dextrose 100 ml @ 50 mls/hr Q12HR IV Last administered on 12/06/18at 21:15; Start 12/06/18 at 09:00; Stop 12/07/18 at 08:02; Status DC Aspirin (Ecotrin) 81 mg DAILY08 PO Last administered on 12/07/18at 08:37; Start 12/06/18 at 09:00 Calcium Polycarbophil (Fibercon) 625 mg DAILY PO Last administered on 12/07/18at 08:37; Start 12/06/18 at 09:00 Ferrous Sulfate (Feosol) 325 mg DAILY08 PO Last administered on 12/07/18 08:37; Start 12/06/18 at 09:00 Niacin (Slo-Niacin) 500 mg QHS PO Last administered on 12/06/18at 21:14; Start 12/06/18 at 21:00 Non-Formulary Medication (Alendronate Sodium ) 1 tab WEEKLY PO ; Start 12/06/18 at 09:00; Status UNV Vitamin D (Vitamin D3) 1,000 unit DAILY PO Last administered on 12/07/18 08:37; Start 12/06/18 at 09:00 Non-Formulary Medication (Ibrutinib (Imbruvica)) 420 mg DAILY PO Last admini stered on 12/06/18at 10:54; Start 12/06/18 at 11:00; Stop 12/06/18 at 13:22; Status DC Fluticasone Propionate (Flonase) 2 spray PRN DAILY PRN NS ALLERGY SYMPTOMS; Start 12/06/18 at 09:00 Metoprolol Tartrate (Lopressor) 100 mg BID PO Last administered on 12/07/18 08:39; Start 12/06/18 at 09:00 Pantoprazole Sodium (Protonix) 40 mg DAILYAC PO Last administered on 12/07/18 06:17; Start 12/06/18 at 09:00 Diltiazem HCl 125 mg/Dextrose 125 ml @ 5 mls/hr CONT PRN IV SEE I/O RECORD; Start 12/06/18 at 09:30 Magnesium Sulfate 50 ml @ 25 mls/hr 1X ONCE IV Last administered on 12/06/18at 16:48; Start 12/06/18 at 16:30; Stop 12/06/18 at 18:29; Status DC Apixaban (Eliquis) 5 mg BID PO Last administered on 12/06/18 21:14; Start 12/06/18 at 21:00; Stop 12/07/18 at 07:24; Status DC Apixaban (Eliquis) 2.5 mg BID PO Last administered on 12/07/18 08:37; Start 12/07/18 at 09:00 Doxycycline Hyclate (Vibra-Tab) 100 mg BID PO Last administered on 12/07/18 08:36; Start 12/07/18 at 09:00 Digoxin (Lanoxin) 250 mcg 1X ONCE IV ; Start 12/07/18 at 14:15; Stop 12/07/18 at 14:16; Status DC Active Scripts Active Reported Imbruvica (Ibrutinib) 140 Mg Capsule 420 Mg PO DAILY Amlodipine Besylate 5 Mg Tablet 5 Mg PO DAILY Hydralazine Hcl 50 Mg Tablet 1 Tab PO BID Vitamin D (Cholecalciferol (Vitamin D3)) 1,000 Unit Capsule 1 Cap PO DAILY Niaspan (Niacin) 500 Mg Tab.er.24h 1 Tab PO QHS Nasonex (Mometasone Furoate) 17 Gm [place].pump 2 Sprays NS PRN PRN Metoprolol Tartrate 100 Mg Tablet 1 Tab PO BID Metformin Hcl 500 Mg Tablet 500 Mg PO DAILY08 Losartan Potassium 50 Mg Tablet 50 Mg PO DAILY Ferrous Sulfate 325 Mg Tablet 1 Tab PO DAILY Claritin (Loratadine) 10 Mg Tablet 1 Tab PO DAILY Omeprazole 20 Mg Capsule.dr 1 Cap PO DAILY Fibercon (Calcium Polycarbophil) 625 Mg Tablet 625 Mg PO Aspir-Low (Aspirin) 81 Mg Tablet.dr 1 Tab PO DAILY Alendronate Sodium 70 Mg Tablet 1 Tab PO WEEKLY Metformin Hcl 500 Mg Tablet 500 Mg PO DAILY Vitals/I & O Vital Sign - Last 24 Hours 12/06/18 12/06/18 12/06/18 12/06/18 14:39 19:00 21:15 22:45 Temp 97.5 98.6 98.2 97.5 98.6 98.2 Pulse 89 108 108 77 Resp 24 18 20 B/P (MAP) 113/64 (80) 116/69 (85) 116/69 108/58 (75) Pulse Ox 96 96 95 O2 Delivery Room Air Room Air Room Air 12/07/18 12/07/18 12/07/18 12/07/18 03:39 07:00 08:00 08:39 Temp 97.9 98.1 97.9 98.1 Pulse 87 116 116 Resp 16 16 B/P (MAP) 140/72 (94) 123/66 (85) 123/66 Pulse Ox 98 97 O2 Delivery Room Air Room Air 12/07/18 10:58 Temp 97.7 97.7 Pulse 106 Resp 18 B/P (MAP) 125/74 (91) Pulse Ox 97 O2 Delivery Room Air Intake and Output 12/06/18 12/06/18 12/07/18 14:59 22:59 06:59 Intake Total 360 ml 400 ml Output Total 325 ml 850 ml 1200 ml Balance 35 ml -850 ml -800 ml VIRGINIA VALDOVINOS MD Dec 07, 2018 14:33
[2018-12-07 15:00] VITALS: BP 127/67
[2018-12-07 19:00] VITALS: BP 152/63
--- NOTE | 2018-12-07 19:40 | NUR ---
Pt up in chair assessment completed vss poc explained pt denies pain will resume care and continue to monitor pt.
[2018-12-07] MEDS: NIACIN ER 500 MG TABLET.ER PO SCH (20:32)
[2018-12-07 23:00] VITALS: BP 138/66
[2018-12-08 03:00] VITALS: BP 142/67
[2018-12-08] MEDS: PANTOPRAZOLE 40 MG TABLET.DR. PO SCH (06:16)
[2018-12-08 07:00] VITALS: BP 157/63
--- NOTE | 2018-12-08 08:08 | NUR ---
SS following up with discharge planning. PT recommended home with assistance. Nurse navigator to meet with pt in regards to home healthcare.
[2018-12-08] MEDS ORDERED: ANTI-COAG MONITOR BY PHARMACY. MC PRN (08:30)
[2018-12-08] MEDS: FERROUS SULFATE 325 MG TABLET. PO SCH (08:37)
[2018-12-08] MEDS: APIXABAN 2.5 MG TABLET. PO SCH (08:37)
[2018-12-08] MEDS: CHOLECALCIFEROL (VITAMIN D3) 1,000 UNIT TABLET PO SCH (08:37)
[2018-12-08] MEDS: ASPIRIN ENTERIC COATED 81 MG TABLET.DR. PO SCH (08:37)
[2018-12-08] MEDS: CALCIUM POLYCARBOPHIL 625 MG TABLET PO SCH (08:38)
[2018-12-08] MEDS: METOPROLOL TART IMMED RELEASE 50 MG TABLET. PO SCH (08:38)
[2018-12-08] MEDS: DOXYCYCLINE HYCLATE 100 MG TABLET PO SCH (08:38)
[2018-12-08] MEDS ORDERED: LISINOPRIL 5 MG TABLET. PO SCH (09:00)
--- NOTE | 2018-12-08 10:21 | PDOC ---
VIRGINIE VELÁZQUEZ ROCK DRILL OPERATOR 12/08/18 1021: CARDIO Progress Notes Date and Time Date of Service 12/08/2018 Time of Evaluation 0910 Subjective Subjective: No Chest Pain, No shortness of breath, No Palpitations Vitals Vitals Vital Signs Date Time Temp Pulse Resp B/P (MAP) Pulse Ox O2 Delivery O2 Flow Rate FiO2 12/08/18 08:40 69 157/63 12/08/18 08:00 Room Air 12/08/18 07:00 98.0 18 97 98.0 Weight Weight [ ] Input and Output Intake and Output Intake and Output 12/08/18 07:00 Intake Total 520 ml Output Total 1600 ml Balance -1080 ml Intake Oral 520 ml Output Urine Total 1600 ml # Voids 2 # Bowel Movements 2 Microbiology Micro Microbiology 12/05/18 Blood Culture - Preliminary, Resulted NO GROWTH AFTER 2 DAYS Physical Exam HEENT: Neck Supple W Full Motion Chest: Symmetric LUNGS: Clear to Auscultation Heart: RRR (SR), murmurs (3/6 apical murmur) Abdomen: Soft N/T Extremities: No Calf Tenderness Neurology: alert, oriented, follow commands Assessment Assessment 1. AFIB with RVR: EF and WM nml Converted to SR and received Dig IV yesterday 2. Waldenstroms/Lymphoma- treatment with Imbruvica. Hemonc following 3. BRITTA likely on CKD3: +for macroalbuminuria. Cr better. 4. Hypertension: mildly elevated 5. Diabetes, II: lipids on goal 6. Mild to mod MR: No LVH Recommendations 1. Continue with BB with addition of lisinopril. 2. Low dose eliquis per guideline recommendation 3. MCOT as an outpt. Will consider for further antiarrhythmic therapy pending MCOT result. 4. Follow up in 4 weeks. 5. Plan for outpt stress test TERRY VOSS MD 12/08/183: CARDIO Progress Notes Assessment Assessment Patient seen and examined. Agree with GEAR CUTTING MACHINE OPERATOR's assessment and plan. Presently back in sinus rhythm Continue BB and plan outpatient event monitor to determine arrhythmia burden HUILoraineDUNGTALATomas Edward ROCK DRILL OPERATOR Dec 08, 2018 10:21 TERRY VOSS MD Dec 08, 2018 20:53
--- NOTE | 2018-12-08 10:58 | RAD ---
Indication: Elevated protrusion with pulsatile mass. TECHNIQUE: Grayscale, color Doppler and spectral waveform images of the left upper extremity deep veins COMPARISON: None FINDINGS: The internal jugular, subclavian, axillary, brachial, radial and ulnar veins are patent. Cephalic vein is patent. Hypoechoic filling defect is seen in the basilic vein in the antecubital fossa with surrounding soft tissue edema. IMPRESSION: Occluding thrombus in the basilic vein at the level of antecubital fossa. No DVT. Electronically signed by: Aneesh Vegas DO (12/08/2018 10:56 AM) [facility]
[2018-12-08 11:00] VITALS: BP 137/58
--- NOTE | 2018-12-08 13:14 | PDOC ---
PROGRESS NOTES Subjective Subjective HPI - f/u of Waldenstrom macroglobulinemia. ROS - no dyspnea Objective Objective Vital Signs Date Time Temp Pulse Resp B/P (MAP) Pulse Ox O2 Delivery O2 Flow Rate FiO2 12/08/18 11:00 98.2 62 18 137/58 (84) 96 Room Air 98.2 Intake and Output 12/08/18 07:00 Intake Total 520 ml Output Total 1600 ml Balance -1080 ml Intake Oral 520 ml Output Urine Total 1600 ml # Voids 2 # Bowel Movements 2 Physical Exam Heart: Normal S1, Normal S2 General: Alert, Oriented X3 Lungs: Clear to auscultation Neuro: Normal speech Psych/Mental Status: Mental status NL Assessment Assessment IMPRESSION AND PLAN: 1. Waldenstrom macroglobulinemia. She is on treatment with Imbruvica 420 mg daily. Imbruvica increases the risk of pneumonia. In view of current ongoing infection and pneumonia, I have advised her to hold Imbruvica and resume upon discharge if she continues to improve. She understands and agrees with the plan. 2. Pneumonia. Continue management per primary care team. No dyspnea. 3. Anemia. Hemoglobin is 10.1. No signs of bleeding. Continue to monitor. 4. Atrial fibrillation, new onset, management per cardiology. Imbruvica increases the risk of a.fib. Comment Review of Relevant I have reviewed the following items mati (where applicable) has been applied. Labs Laboratory Tests Test 12/07/18 05:00 White Blood Count 6.1 x10^3/uL (4.0-11.0) Red Blood Count 3.74 x10^6/uL (3.50-5.40) Hemoglobin 10.1 g/dL (12.0-15.5) Hematocrit 30.4 % (36.0-47.0) Mean Corpuscular Volume 81 fL (79-100) Mean Corpuscular Hemoglobin 27 pg (25-35) Mean Corpuscular Hemoglobin Concent 33 g/dL (31-37) Red Cell Distribution Width 15.1 % (11.5-14.5) Platelet Count 297 x10^3/uL (140-400) Neutrophils (%) (Auto) 31 % (31-73) Lymphocytes (%) (Auto) 42 % (24-48) Monocytes (%) (Auto) 24 % (0-9) Eosinophils (%) (Auto) 3 % (0-3) Basophils (%) (Auto) 1 % (0-3) Neutrophils # (Auto) 1.9 x10^3/uL (1.8-7.7) Lymphocytes # (Auto) 2.5 x10^3/uL (1.0-4.8) Monocytes # (Auto) 1.5 x10^3/uL (0.0-1.1) Eosinophils # (Auto) 0.2 x10^3/uL (0.0-0.7) Basophils # (Auto) 0.0 x10^3/uL (0.0-0.2) Sodium Level 134 mmol/L (136-145) Potassium Level 3.6 mmol/L (3.5-5.1) Chloride Level 103 mmol/L (98-107) Carbon Dioxide Level 20 mmol/L (21-32) Anion Gap 11 (6-14) Blood Urea Nitrogen 22 mg/dL (7-20) Creatinine 1.0 mg/dL (0.6-1.0) Estimated GFR (Cockcroft-Gault) 53.1 Glucose Level 108 mg/dL (70-99) Calcium Level 8.4 mg/dL (8.5-10.1) Magnesium Level 2.4 mg/dL (1.8-2.4) Microbiology 12/05/18 Blood Culture - Preliminary, Resulted NO GROWTH AFTER 2 DAYS Medications Current Medications Ceftriaxone Sodium (Rocephin) 2 gm 1X ONCE IVP Last administered on 12/05/18at 20:35; Start 12/05/18 at 20:00; Stop 12/05/18 at 20:04; Status DC Sodium Chloride 1,000 ml @ 1,620 mls/hr Q38M IV Last administered on 12/05/18at 20:00; Start 12/05/18 at 20:00; Stop 12/05/18 at 21:00; Status DC Acetaminophen (Tylenol) 650 mg 1X ONCE PO Last administered on 12/05/18at 20:34; Start 12/05/18 at 20:00; Stop 12/05/18 at 20:04; Status DC Diltiazem HCl (Cardizem Iv Push) 10 mg 1X ONCE IVP Last administered on 12/05/18at 20:36; Start 12/05/18 at 20:30; Stop 12/05/18 at 20:31; Status DC Doxycycline Hyclate 100 mg/ Dextrose 100 ml @ 50 mls/hr 1X ONCE IV Last administered on 12/05/18at 21:07; Start 12/05/18 at 21:00; Stop 12/05/18 at 22:59; Status DC Magnesium Sulfate/ Dextrose 100 ml @ 100 mls/hr 1X ONCE IV Last administered on 12/05/18at 21:27; Start 12/05/18 at 21:15; Stop 12/05/18 at 22:14; Status DC Potassium Chloride/Water 100 ml @ 100 mls/hr Q1H IV Last administered on 12/05/18at 23:17; Start 12/05/18 at 21:15; Stop 12/05/18 at 23:14; Status DC Diltiazem HCl 125 mg/Dextrose 125 ml @ 5 mls/hr 1X ONCE IV Last administered on 12/05/18at 21:27; Start 12/05/18 at 21:30; Stop 12/06/18 at 22:29; Status DC Sodium Chloride 1,000 ml @ 75 mls/hr [id number] IV Last administered on 12/06/18at 10:54; Start 12/05/18 at 22:00; Stop 12/06/18 at 21:59; Status DC Potassium Chloride (Klor-Con) 40 meq 1X ONCE PO Last administered on 12/06/18at 06:27; Start 12/06/18 at 06:15; Stop 12/06/18 at 06:16; Status DC Enoxaparin Sodium (Lovenox 30mg Syringe) 30 mg Q24H SQ Last administered on 12/06/18at 09:02; Start 12/06/18 at 08:15; Stop 12/06/18 at 16:59; Status DC Doxycycline Hyclate 100 mg/ Dextrose 100 ml @ 50 mls/hr Q12HR IV Last admin istered on 12/06/18at 21:15; Start 12/06/18 at 09:00; Stop 12/07/18 at 08:02; Status DC Aspirin (Ecotrin) 81 mg DAILY08 PO Last administered on 12/08/18at 08:37; Start 12/06/18 at 09:00 Calcium Polycarbophil (Fibercon) 625 mg DAILY PO Last administered on 12/08/18 08:38; Start 12/06/18 at 09:00 Ferrous Sulfate (Feosol) 325 mg DAILY08 PO Last administered on 12/08/18 08:37; Start 12/06/18 at 09:00 Niacin (Slo-Niacin) 500 mg QHS PO Last administered on 12/07/18at 20:32; Start 12/06/18 at 21:00 Non-Formulary Medication (Alendronate Sodium ) 1 tab WEEKLY PO ; Start 12/06/18 at 09:00; Status UNV Vitamin D (Vitamin D3) 1,000 unit DAILY PO Last administered on 12/08/18 08:37; Start 12/06/18 at 09:00 Non-Formulary Medication (Ibrutinib (Imbruvica)) 420 mg DAILY PO Last administered on 12/06/18at 10:54; Start 12/06/18 at 11:00; Stop 12/06/18 at 13:22; Status DC Fluticasone Propionate (Flonase) 2 spray PRN DAILY PRN NS ALLERGY SYMPTOMS; Start 12/06/18 at 09:00 Metoprolol Tartrate (Lopressor) 100 mg BID PO Last administered on 12/08/18 08:38; Start 12/06/18 at 09:00 Pantoprazole Sodium (Protonix) 40 mg DAILYAC PO Last administered on 12/08/18at 06:16; Start 12/06/18 at 09:00 Diltiazem HCl 125 mg/Dextrose 125 ml @ 5 mls/hr CONT PRN IV SEE I/O RECORD; Start 12/06/18 at 09:30 Magnesium Sulfate 50 ml @ 25 mls/hr 1X ONCE IV Last administered on 12/06/18at 16:48; Start 12/06/18 at 16:30; Stop 12/06/18 at 18:29; Status DC Apixaban (Eliquis) 5 mg BID PO Last administered on 12/06/18at 21:14; Start 12/06/18 at 21:00; Stop 12/07/18 at 07:24; Status DC Apixaban (Eliquis) 2.5 mg BID PO Last administered on 12/08/18at 08:37; Start 12/07/18 at 09:00 Doxycycline Hyclate (Vibra-Tab) 100 mg BID PO Last administered on 12/08/18at 08:38; Start 12/07/18 at 09:00 Digoxin (Lanoxin) 250 mcg 1X ONCE IV Last administered on 12/07/18at 15:14; Start 12/07/18 at 14:15; Stop 12/07/18 at 14:16; Status DC Lisinopril (Prinivil) 5 mg DAILY PO Last administered on 12/08/18at 08:40; Start 12/08/18 at 09:00 Info (Anti-Coagulation Monitoring By Pharmacy) 1 each PRN DAILY PRN MC SEE COMMENTS; Start 12/08/18 at 08:30 Active Scripts Active Reported Imbruvica (Ibrutinib) 140 Mg Capsule 420 Mg PO DAILY Amlodipine Besylate 5 Mg Tablet 5 Mg PO DAILY Hydralazine Hcl 50 Mg Tablet 1 Tab PO BID Vitamin D (Cholecalciferol (Vitamin D3)) 1,000 Unit Capsule 1 Cap PO DAILY Niaspan (Niacin) 500 Mg Tab.er.24h 1 Tab PO QHS Nasonex (Mometasone Furoate) 17 Gm [place].pump 2 Sprays NS PRN PRN Metoprolol Tartrate 100 Mg Tablet 1 Tab PO BID Metformin Hcl 500 Mg Tablet 500 Mg PO DAILY08 Losartan Potassium 50 Mg Tablet 50 Mg PO DAILY Ferrous Sulfate 325 Mg Tablet 1 Tab PO DAILY Claritin (Loratadine) 10 Mg Tablet 1 Tab PO DAILY Omeprazole 20 Mg Capsule.dr 1 Cap PO DAILY Fibercon (Calcium Polycarbophil) 625 Mg Tablet 625 Mg PO Aspir-Low (Aspirin) 81 Mg Tablet.dr 1 Tab PO DAILY Alendronate Sodium 70 Mg Tablet 1 Tab PO WEEKLY Metformin Hcl 500 Mg Tablet 500 Mg PO DAILY Vitals/I & O Vital Sign - Last 24 Hours 12/07/18 12/07/18 12/07/18 12/07/18 15:00 15:14 19:00 20:33 Temp 97.7 97.8 97.7 97.8 Pulse 98 121 76 80 Resp 16 18 B/P (MAP) 127/67 (87) 125/74 152/63 (92) 152/63 Pulse Ox 96 97 O2 Delivery Room Air Room Air 12/07/18 12/08/18 12/08/18 12/08/18 23:00 03:00 07:00 08:00 Temp 98.2 98.1 98.0 98.2 98.1 98.0 Pulse 63 65 69 Resp 18 18 18 B/P (MAP) 138/66 (90) 142/67 (92) 157/63 (94) Pulse Ox 94 97 97 O2 Delivery Room Air Room Air Room Air Room Air 12/08/18 12/08/18 12/08/18 08:38 08:40 11:00 Temp 98.2 98.2 Pulse 69 69 62 Resp 18 B/P (MAP) 157/63 157/63 137/58 (84) Pulse Ox 96 O2 Delivery Room Air Intake and Output 12/07/18 12/07/18 12/08/18 15:00 23:00 07:00 Intake Total 180 ml 340 ml 0 ml Output Total 300 ml 600 ml 700 ml Balance -120 ml -260 ml -700 ml Nutrition Consultation Dietary Evaluation: Recommendations by RD: Increase Calorie Intake Comments: REC cardiac/ADA diet w/neutropenic precautions, honor food preferences, and provide snacks as requested Expected Outcomes/Goals: PO intake to meet >75% est needs Malnutrition Findings: Food and Nutrition Intake (Mod: <75% est energy req 7days Weight Status: Appropriate VIRGINIA VALDOVINOS MD Dec 08, 2018 13:14
[2018-12-08] MEDS ORDERED: APIX2.5T PO (13:56)
[2018-12-08] MEDS ORDERED: DOXY100T PO (13:56)
--- NOTE | 2018-12-08 13:56 | PDOC3 ---
Discharge Summary Brief Hospital Course Ms. Sánchez is a 83 old [sex] who presented with [ ] Discharge Medications Current Medications Ceftriaxone Sodium (Rocephin) 2 gm 1X ONCE IVP Last administered on 12/05/18at 20:35; Start 12/05/18 at 20:00; Stop 12/05/18 at 20:04; Status DC Sodium Chloride 1,000 ml @ 1,620 mls/hr Q38M IV Last administered on 12/05/18at 20:00; Start 12/05/18 at 20:00; Stop 12/05/18 at 21:00; Status DC Acetaminophen (Tylenol) 650 mg 1X ONCE PO Last administered on 12/05/18at 20:34; Start 12/05/18 at 20:00; Stop 12/05/18 at 20:04; Status DC Diltiazem HCl (Cardizem Iv Push) 10 mg 1X ONCE IVP Last administered on 12/05/18at 20:36; Start 12/05/18 at 20:30; Stop 12/05/18 at 20:31; Status DC Doxycycline Hyclate 100 mg/ Dextrose 100 ml @ 50 mls/hr 1X ONCE IV Last administered on 12/05/18at 21:07; Start 12/05/18 at 21:00; Stop 12/05/18 at 22:59; Status DC Magnesium Sulfate/ Dextrose 100 ml @ 100 mls/hr 1X ONCE IV Last administered on 12/05/18at 21:27; Start 12/05/18 at 21:15; Stop 12/05/18 at 22:14; Status DC Potassium Chloride/Water 100 ml @ 100 mls/hr Q1H IV Last administered on 12/05/18at 23:17; Start 12/05/18 at 21:15; Stop 12/05/18 at 23:14; Status DC Diltiazem HCl 125 mg/Dextrose 125 ml @ 5 mls/hr 1X ONCE IV Last administered on 12/05/18at 21:27; Start 12/05/18 at 21:30; Stop 12/06/18 at 22:29; Status DC Sodium Chloride 1,000 ml @ 75 mls/hr [id number] IV Last administered on 12/06/18at 10:54; Start 12/05/18 at 22:00; Stop 12/06/18 at 21:59; Status DC Potassium Chloride (Klor-Con) 40 meq 1X ONCE PO Last administered on 12/06/18at 06:27; Start 12/06/18 at 06:15; Stop 12/06/18 at 06:16; Status DC Enoxaparin Sodium (Lovenox 30mg Syringe) 30 mg Q24H SQ Last administered on 12/06/18at 09:02; Start 12/06/18 at 08:15; Stop 12/06/18 at 16:59; Status DC Doxycycline Hyclate 100 mg/ Dextrose 100 ml @ 50 mls/hr Q12HR IV Last administered on 12/06/18at 21:15; Start 12/06/18 at 09:00; Stop 12/07/18 at 08:02; Status DC Aspirin (Ecotrin) 81 mg DAILY08 PO Last administered on 12/08/18at 08:37; Start 12/06/18 at 09:00 Calcium Polycarbophil (Fibercon) 625 mg DAILY PO Last administered on 12/08/18at 08:38; Start 12/06/18 at 09:00 Ferrous Sulfate (Feosol) 325 mg DAILY08 PO Last administered on 12/08/18at 08:37; Start 12/06/18 at 09:00 Niacin (Slo-Niacin) 500 mg QHS PO Last administered on 12/07/18at 20:32; Start 12/06/18 at 21:00 Non-Formulary Medication (Alendronate Sodium ) 1 tab WEEKLY PO ; Start 12/06/18 at 09:00; Status UNV Vitamin D (Vitamin D3) 1,000 unit DAILY PO Last administered on 12/08/18at 08:37; Start 12/06/18 at 09:00 Non-Formulary Medication (Ibrutinib (Imbruvica)) 420 mg DAILY PO Last administered on 12/06/18at 10:54; Start 12/06/18 at 11:00; Stop 12/06/18 at 13:22; Status DC Fluticasone Propionate (Flonase) 2 spray PRN DAILY PRN NS ALLERGY SYMPTOMS; Start 12/06/18 at 09:00 Metoprolol Tartrate (Lopressor) 100 mg BID PO Last administered on 12/08/18at 08:38; Start 12/06/18 at 09:00 Pantoprazole Sodium (Protonix) 40 mg DAILYAC PO Last administered on 12/08/18at 06:16; Start 12/06/18 at 09:00 Diltiazem HCl 125 mg/Dextrose 125 ml @ 5 mls/hr CONT PRN IV SEE I/O RECORD; Start 12/06/18 at 09:30 Magnesium Sulfate 50 ml @ 25 mls/hr 1X ONCE IV Last administered on 12/06/18at 16:48; Start 12/06/18 at 16:30; Stop 12/06/18 at 18:29; Status DC Apixaban (Eliquis) 5 mg BID PO Last administered on 12/06/18at 21:14; Start 12/06/18 at 21:00; Stop 12/07/18 at 07:24; Status DC Apixaban (Eliquis) 2.5 mg BID PO Last administered on 12/08/18at 08:37; Start 12/07/18 at 09:00 Doxycycline Hyclate (Vibra-Tab) 100 mg BID PO Last administered on 12/08/18at 08:38; Start 12/07/18 at 09:00 Digoxin (Lanoxin) 250 mcg 1X ONCE IV Last administered on 12/07/18at 15:14; Start 12/07/18 at 14:15; Stop 12/07/18 at 14:16; Status DC Lisinopril (Prinivil) 5 mg DAILY PO Last administered on 12/08/18at 08:40; Start 12/08/18 at 09:00 Info (Anti-Coagulation Monitoring By Pharmacy) 1 each PRN DAILY PRN MC SEE COMMENTS; Start 12/08/18 at 08:30 Active Scripts Active Reported Imbruvica (Ibrutinib) 140 Mg Capsule 420 Mg PO DAILY Amlodipine Besylate 5 Mg Tablet 5 Mg PO DAILY Hydralazine Hcl 50 Mg Tablet 1 Tab PO BID Vitamin D (Cholecalciferol (Vitamin D3)) 1,000 Unit Capsule 1 Cap PO DAILY Niaspan (Niacin) 500 Mg Tab.er.24h 1 Tab PO QHS Nasonex (Mometasone Furoate) 17 Gm [place].pump 2 Sprays NS PRN PRN Metoprolol Tartrate 100 Mg Tablet 1 Tab PO BID Metformin Hcl 500 Mg Tablet 500 Mg PO DAILY08 Losartan Potassium 50 Mg Tablet 50 Mg PO DAILY Ferrous Sulfate 325 Mg Tablet 1 Tab PO DAILY Claritin (Loratadine) 10 Mg Tablet 1 Tab PO DAILY Omeprazole 20 Mg Capsule.dr 1 Cap PO DAILY Fibercon (Calcium Polycarbophil) 625 Mg Tablet 625 Mg PO Aspir-Low (Aspirin) 81 Mg Tablet.dr 1 Tab PO DAILY Alendronate Sodium 70 Mg Tablet 1 Tab PO WEEKLY Metformin Hcl 500 Mg Tablet 500 Mg PO DAILY Vital Signs Vital Signs Date Time Temp Pulse Resp B/P (MAP) Pulse Ox O2 Delivery O2 Flow Rate FiO2 12/08/18 11:00 98.2 62 18 137/58 (84) 96 Room Air 98.2 Labs Laboratory Tests Test 12/07/18 05:00 White Blood Count 6.1 x10^3/uL (4.0-11.0) Red Blood Count 3.74 x10^6/uL (3.50-5.40) Hemoglobin 10.1 g/dL (12.0-15.5) Hematocrit 30.4 % (36.0-47.0) Mean Corpuscular Volume 81 fL (79-100) Mean Corpuscular Hemoglobin 27 pg (25-35) Mean Corpuscular Hemoglobin Concent 33 g/dL (31-37) Red Cell Distribution Width 15.1 % (11.5-14.5) Platelet Count 297 x10^3/uL (140-400) Neutrophils (%) (Auto) 31 % (31-73) Lymphocytes (%) (Auto) 42 % (24-48) Monocytes (%) (Auto) 24 % (0-9) Eosinophils (%) (Auto) 3 % (0-3) Basophils (%) (Auto) 1 % (0-3) Neutrophils # (Auto) 1.9 x10^3/uL (1.8-7.7) Lymphocytes # (Auto) 2.5 x10^3/uL (1.0-4.8) Monocytes # (Auto) 1.5 x10^3/uL (0.0-1.1) Eosinophils # (Auto) 0.2 x10^3/uL (0.0-0.7) Basophils # (Auto) 0.0 x10^3/uL (0.0-0.2) Sodium Level 134 mmol/L (136-145) Potassium Level 3.6 mmol/L (3.5-5.1) Chloride Level 103 mmol/L (98-107) Carbon Dioxide Level 20 mmol/L (21-32) Anion Gap 11 (6-14) Blood Urea Nitrogen 22 mg/dL (7-20) Creatinine 1.0 mg/dL (0.6-1.0) Estimated GFR (Cockcroft-Gault) 53.1 Glucose Level 108 mg/dL (70-99) Calcium Level 8.4 mg/dL (8.5-10.1) Magnesium Level 2.4 mg/dL (1.8-2.4) Allergies Allergies Coded Allergies Type Severity Reaction Last Updated Verified No Known Allergies Allergy Unknown 05/04/18 Yes TERRELL AGARWAL MD Dec 08, 2018 13:56
[2018-12-08 15:00] VITALS: BP 141/58
--- NOTE | 2018-12-08 16:49 | NUR ---
Discharge Note: LUIS F ROMERO Discharge instructions and discharge home medications reviewed with Patient and a copy given. All questions have been answered and understanding verbalized. Follow up appointment information given. New medications called in to patient's preferred pharmacy. The following instructions and handouts were given: Atrial fibrillation, pneumonia, new medications: eliquis and doxycycline Discontinued lines and drains: Peripheral IV intact. Patient discharged to Home or Self Care with Self via Wheelchair
== END 2018-12-08 16:40 | disposition home or self-care (01) | DRG 871 ==
LOC: ER 19:33 → 2 NORTH 21:48
PROVIDERS: ADMIT Family Medicine; ATTEND Family Medicine
DX: A41.9 Sepsis, unspecified organism (principal); J18.9 Pneumonia, unspecified organism; N17.9 Acute kidney failure, unspecified; E87.1 Hypo-osmolality and hyponatremia; E44.0 Moderate protein-calorie malnutrition; I48.91 Unspecified atrial fibrillation; C88.0 Waldenstrom macroglobulinemia; D64.9 Anemia, unspecified; D70.9 Neutropenia, unspecified; E11.22 Type 2 diabetes mellitus with diabetic chronic kidney disease; E83.42 Hypomagnesemia; E87.6 Hypokalemia; I12.9 Hypertensive chronic kidney disease with stage 1 through stage 4 chronic kidney disease, or unspecified chronic kidney disease; E78.5 Hyperlipidemia, unspecified; K57.90 Diverticulosis of intestine, part unspecified, without perforation or abscess without bleeding; M19.90 Unspecified osteoarthritis, unspecified site; K21.9 Gastro-esophageal reflux disease without esophagitis; M81.0 Age-related osteoporosis without current pathological fracture; N18.3 Chronic kidney disease, stage 3 (moderate); R50.81 Fever presenting with conditions classified elsewhere; Z80.41 Family history of malignant neoplasm of ovary; Z82.49 Family history of ischemic heart disease and other diseases of the circulatory system; Z83.3 Family history of diabetes mellitus; Z92.21 Personal history of antineoplastic chemotherapy; Z68.28 Body mass index [BMI] 28.0-28.9, adult
CPT/HCPCS: 36415; 71045; 80048; 80053; 80061; 81001; 83036; 83605; 83690; 83735; 83880; 84443; 84484; 85007; 85025; 85610; 87040; 93005; 93306; 93971; 96374; 96375; J0696; J1160; J1650; J3475; J3480; J3490; J7030; 97116; 99285-25

== ENCOUNTER → 2019-02-09 | Outpatient (CLI) | payer MEDICARE, OTHER ==
[~2019-02-09] MED LIST changes: +AMLO5TAB10 PO; +APIX2.5T PO; +CALC-102 PO; +CHOL100013 PO; +DOXY100T PO; +FERR325T14 PO; +HYDR-2869 PO; +IBRU140C PO; +LORA10TA68 PO; +LOSA-73 PO; +MOME17SP NS; +REGADENOSON 0.4 MG/5 ML DISP.SYRIN. IV ONE
--- NOTE | 2019-02-09 14:02 | RAD ---
MR#: [id number] Date of Study: 02/09/2019 Ordering Physician: TERRY VOSS, Referring Physician: CORI ZAMBRANO Tech: LEIDA Coats ARRT (R) (N) APPROVED REPORT Test Type: Pharmacological Stress Nurse/Tech: Tabitha Valdez R.N. Test Indications: afib Cardiac History: htn, Medications: see ehr Medical History: see ehr Resting ECG: SR with LBBB Resting Heart Rate: 62 bpm Resting Blood Pressure: 165/78mmHg Pretest Chest Pain: No chest pain Nurse/Tech Notes lungs cta, heart tones regular Consent: The procedure was explained to the patient in lay terms. Informed consent was witnessed. Solo eout was entered into [employer]. History and Stress Test performed by MONTSERRAT Iyer Pharm. Details Pharmacologic stress testing was performed using 0.4mg per 5ml of regadenoson given intravenously ove r 7-10 seconds. Stress Symptoms No chest pain or symptoms. POST EXERCISE Reason for Termination: Infusion complete Target HR: No Max HR: 115 bpm Max Blood Pressure: 186/52mmHg Chest Pain: No. Arrhythmia: Yes. Freguent PACs throughout ST Change: No. INTERPRETATION Stress EKG Conclusion: Baseline EKG showed sinus rhythm with LBBB. No ischemic changes at peak stres s. No arrhythmias. Imaging Protocol IMAGE PROTOCOL: Rest Tc-99m/stress Tc-99m 1 day Rest: Stress: Viability: Radiopharm.Tc99m [id number] Sestamibi Dose10.3mCi 33mCi Img Date 02/09/2019 02/09/2019 Inj-Img [id number]. 60min. Rest Admin Site:IV - Right AntecubitalAdministrator:LEIDA Coats ARRT (R)(N) Stress Admin Site: IV - Right AntecubitalAdministrator: MONTSERRAT Iyer STRESS DATA End Diast. Vol.83.0mlAv. Heart Rate71.0bpm End Syst. Vol.13.0mlCO Index BSA0.0L/min Myocardial Nmil722.0gEject. Rmnwlyxe62.0% Stress Rates Pk. Fill Rate3.02EDV/secLVtime Pk. Fill 210.56msec Pk. Empty Rate3.26ESV/secLVtime Pk. Xtxvh310.14msec / Pk. Fill1.50EDV/sec Stress Scores Regional WT0.00Summed WT0.00 Regional WM0.00Summed WM0.00 Study quality was good. Left Ventricular size was Normal at Rest and Stress. Lung uptake was . Left Ventricular ejection fraction is 84%. The rest and stress images show normal perfusion, normal contraction and thickening. LV Perf. Quant 17 Seg. SSS1.00 17 Seg. SRS14.00 17 Seg. SDS0.00 Stress Defect Extent (% LAD)0.00Rest Defect Extent (% LAD)13.80Rev. Defect Extent (% LAD)0.00 Stress Defect Extent (% LCX) 0.00Rest Defect Extent (% LCX)40.00Rev. Defect Extent (% LCX)0.00 Stress Defect Extent (% RCA)0.00Rest Defect Extent (% RCA)24.40Rev. Defect Extent (% RCA)0.00 Stress Defect Extent (% STEFFEN)0.00Rest Defect Extent (% STEFFEN)27.80Rev. Defect Extent (% STEFFEN)0.00 Conclusion 1. Regadenoson cardioisotope stress test did not show any evidence of ischemia or infarct. 2. Normal left ventricular systolic function with ejection fraction calculated at 84%. 3. Low risk for cardiac events. Signed by : Terry Voss, Electronically Approved : 02/09/2019 14:02:05
== END | disposition home or self-care (01) ==
LOC: NM 08:50
PROVIDERS: ATTEND Internal Medicine Cardiovascular Disease
DX: I44.7 Left bundle-branch block, unspecified (principal); I48.0 Paroxysmal atrial fibrillation
CPT/HCPCS: 78452; 93017; A9500; J2785

== ENCOUNTER → 2019-08-22 | Outpatient (CLI) | payer MEDICARE, OTHER ==
[~2019-08-22] MED LIST changes: -OMEP20CA10 PO; +OMEP20CA16 PO; -REGADENOSON 0.4 MG/5 ML DISP.SYRIN. IV ONE
[2019-08-22 10:10] VITALS: BP 113/54
[2019-08-22 10:39] LABS: HEMATOCRIT 19.8 % (36.0-47.0); HEMOGLOBIN 6.6 g/dL (12.0-15.5)
[2019-08-22 11:20] VITALS: BP 134/65
[2019-08-22 12:20] VITALS: BP 129/60
[2019-08-22 13:02] VITALS: BP 125/60
== END | disposition home or self-care (01) ==
LOC: OPS 09:40
PROVIDERS: ATTEND Family Medicine
DX: D64.9 Anemia, unspecified (principal); K21.9 Gastro-esophageal reflux disease without esophagitis; I11.9 Hypertensive heart disease without heart failure; I48.0 Paroxysmal atrial fibrillation; E11.9 Type 2 diabetes mellitus without complications; M19.90 Unspecified osteoarthritis, unspecified site; Z79.899 Other long term (current) drug therapy; Z79.01 Long term (current) use of anticoagulants
CPT/HCPCS: 36415; 36430; 85014; 85018; 86850; 86900; 86901; 86920; P9016

== ENCOUNTER → 2020-04-30 | Outpatient (CLI) | payer MEDICARE, OTHER ==
[2019-08-22 13:02] VITALS: BP 125/60
[~2020-04-30] MED LIST changes: -ALEN70TA6 PO; +ALEN70TA60 PO; +AMLO-186 PO; -AMLO5TAB10 PO
--- NOTE | 2020-04-30 13:49 | RAD ---
Chest radiograph 04/30/2020 12:00 AM INDICATION: Cough and fever COMPARISON: 08/30/2019 TECHNIQUE: Frontal and lateral views of the chest are provided. FINDINGS: The cardiomediastinal silhouette is within normal limits. There are no pleural effusions. There is no pulmonary vascular congestion. There is no pneumothorax. Pulmonary emphysematous changes are present. No new airspace consolidation is identified. Moderate size hiatal hernia is noted. No significant osseous abnormality is identified. IMPRESSION: COPD changes without acute cardiopulmonary process. Moderate size hiatal hernia appears stable. Electronically signed by: Gosia Vargas MD (04/30/2020 1:46 PM) [facility]
== END ==
LOC: RAD 12:25
PROVIDERS: ATTEND Family Medicine
DX: J43.9 Emphysema, unspecified (principal); K44.9 Diaphragmatic hernia without obstruction or gangrene
CPT/HCPCS: 71046

== ENCOUNTER → 2020-05-10 | Outpatient (CLI) | payer MEDICARE, OTHER ==
[2019-08-22 13:02] VITALS: BP 125/60
--- NOTE | 2020-05-10 17:39 | CARD ---
MR#: [id number] Date of Study: 05/10/2020 Ordering Physician: TERRY VOSS, Referring Physician: TERRY VOSS Tech: Meeta Cooper [facility] APPROVED REPORT EXAM: Two-dimensional and M-mode echocardiogram with Doppler and color Doppler. Other Information Quality : AverageHR: 57bpm Rhythm : NSR INDICATION Abnormal ECG RISK FACTORS Hypertension Hyperlipidemia 2D DIMENSIONS RVDd3.3 (2.9-3.5cm)Left Atrium(2D)3.7 (1.6-4.0cm) IVSd1.0 (0.7-1.1cm)Aortic Root(2D)2.6 (2.0-3.7cm) LVDd4.2 (3.9-5.9cm)LVOT Diameter1.5 (1.8-2.4cm) PWd0.8 (0.7-1.1cm)LVDs2.2 (2.5-4.0cm) FS (%) 47.1 %SV60.5 ml Aortic Valve AoV Peak Richy.151.0cm/sAoV VTI38.4cm AO Peak GR.9.1mmHgLVOT Peak Richy.110.4cm/s AO Mean GR.4mmHgAVA (VMAX)1.37cm2 Mitral Valve MV E Hsynewam101.5cm/sMV DECEL XBTO201pm MV A Dvptdigo06.6cm/sE/A Ratio1.4 Pulmonary Valve PV Peak Xcxuthdv78.6cm/s Tricuspid Valve TR P. Jtescngj123gm/sTR Peak Gr.41mmHg Pulmonary Vein S1 Mdqxueyw64.5cm/sD2 Bhbtnefx43.5cm/s PVa [id number] LEFT VENTRICLE The left ventricle is normal size. There is normal left ventricular wall thickness. The left ventricu lar systolic function is normal. The ejection fraction 55-60%. There is normal LV segmental wall gilberto on. Transmitral Doppler flow pattern is Grade I-abnormal relaxation pattern. RIGHT VENTRICLE The right ventricle is normal size. There is normal right ventricular wall thickness. The right ventr icular systolic function is normal. ATRIA The left atrium is mildly dilated. The right atrium size is normal. The interatrial septum is intact with no evidence for an atrial septal defect or patent foramen ovale as noted on 2-D or Doppler imagi ng. AORTIC VALVE The aortic valve is normal in structure and function. Doppler and Color Flow revealed trace aortic re gurgitation. There is no significant aortic valvular stenosis. MITRAL VALVE The mitral valve is normal in structure and function. There is no evidence of mitral valve prolapse. There is no mitral valve stenosis. Doppler and Color-flow revealed moderate mitral regurgitation. TRICUSPID VALVE The tricuspid valve is normal in structure and function. Doppler and Color Flow revealed mild tricusp id regurgitation. Estimated PAP 40-45 mmHg. PULMONIC VALVE The pulmonary valve is normal in structure and function. Doppler and Color Flow revealed no pulmonic valvular regurgitation. GREAT VESSELS The aortic root is normal in size. The ascending aorta is normal in size. The pulmonary artery is nor mal. The IVC is normal in size and collapses >50% with inspiration. PERICARDIAL EFFUSION There is no evidence of significant pericardial effusion. Critical Notification Critical Value: No <Conclusion> The left ventricle is normal size. The left ventricular systolic function is normal. The ejection fraction 55-60%. Doppler and Color Flow revealed trace aortic regurgitation. There is no significant aortic valvular stenosis. Doppler and Color-flow revealed moderate mitral regurgitation. Doppler and Color Flow revealed mild tricuspid regurgitation. Estimated PAP 40-45 mmHg. Signed by : Thiago Sommers MD Electronically Approved : 05/10/2020 17:39:04
== END ==
LOC: ECHO 10:30
PROVIDERS: ATTEND Internal Medicine Cardiovascular Disease
DX: I08.1 Rheumatic disorders of both mitral and tricuspid valves (principal); I48.0 Paroxysmal atrial fibrillation
CPT/HCPCS: 93306

== ENCOUNTER 2020-11-13 09:43 | Emergency (ER) | payer MEDICARE, OTHER ==
[~2020-11-13] VITALS: Ht 149.9 cm; Wt 57.1 kg
[~2020-11-13 09:43] MED LIST changes: -ALEN70TA60 PO; +ALEN70TA71 PO
--- NOTE | 2020-11-13 10:11 | ED.ADGEN ---
Past Medical History Past Medical History: Cancer, Hypertension Additional Past Medical Histor: LYMPHOMA, BORDERLINE DIABETES Past Surgical History: Cholecystectomy Additional Past Surgical Histo: RIGHT TIBIA/KNEE CAP FRACTURE, RIGHT ARM FRACTURE Smoking Status: Never Smoker Alcohol Use: None Drug Use: None General Adult EDM: Chief Complaint: LACERATION/AVULSION HPI: HPI: Patient is a 85 year old female, accompanied by her friend, who presents emergency room with complaints of a laceration to the medial palm and wrist of her RUE. Patient reports that she was using a mandolin to slice onions for a cucumber salad when she accidentally sliced her hand and wrist. Patient reports she is not sure when her last tetanus shot was. She denies any decreased range of motion, numbness, tingling, or decreased sensation of the affected hand. She currently rates the discomfort a 4 out of 10 on the pain scale, she denies any alleviating or exacerbating factors. Patient reports she does take Eliquis daily. Review of Systems: Review of Systems: Complete ROS is negative unless otherwise noted in HPI. Current Medications: Current Medications Medications (Trade) Dose Ordered Sig/Valarie Start Time Stop Time Status Last Admin Dose Admin Diphtheria/ Tetanus/Acell Pertussis (ADACEL TDap SYRINGE) 0.5 ml ONCE ONCE 11/13/20 10:30 11/13/20 10:31 DC 11/13/20 10:18 0.5 ML Lidocaine HCl (Lidocaine 2% 20ml Vial) 20 ml 1X ONCE 11/13/20 10:15 11/13/20 10:16 DC 11/13/20 10:13 20 ML Allergies: Allergies: Allergies Coded Allergies Type Severity Reaction Last Updated Verified No Known Allergies Allergy Unknown 08/22/19 Yes Physical Exam: PE: See Above Constitutional: Well developed, well nourished, no acute distress, non-toxic appearance. [] HENT: Normocephalic, atraumatic, bilateral external ears normal, nose normal. [] Eyes: PERRLA, EOMI, conjunctiva normal, no discharge. [] Neck: Normal range of motion, no stridor. [] Cardiovascular:Heart rate regular rhythm Lungs & Thorax: Respirations even and unlabored, no retractions, no respiratory distress Skin: Warm, dry, no erythema, no rash; 3.5 cm laceration to medial palm of right hand extending to wrist, no visible foreign body, bleeding controlled with pressure dressing in place,. [] Extremities: Right hand: No bony tenderness or deformity, full extension and flexion of all digits, sensation intact, cap refill less than 2 seconds, no cyanosis, ROM intact, no edema. [] Neurologic: Alert and oriented X 3, normal motor, normal sensory, no focal deficits noted. [] Psychologic: Affect normal, judgement normal, mood normal. [] Current Patient Data: Vital Signs: Vital Signs Date Time Temp Pulse Resp B/P (MAP) Pulse Ox O2 Delivery O2 Flow Rate FiO2 11/13/20 10:03 98.4 60 16 190/87 (121) 98 Room Air 98.4 EKG: EKG: [] Heart Score: C/O Chest Pain: No Radiology/Procedures: Radiology/Procedures: Laceration Repair by me: Anesthesia: 2% lidocaine local Location: Right hand Tendon/Joint/Nerves: No injury Foreign body: None detected after copious irrigation and exploration with NS and chlorhexidine Technique: 7 Simple Interrupted Sutures with 4-0 Ethilon Complexity: No subcutaneous sutures/mucosal repair/edge excision Post Closure Length: 3.5 cm Patient's bleeding was easily controlled in the department and there is no indication of anemia. No evidence of compartment syndrome, neurologic injury, vascular injury, open joint, tendon laceration, or foreign body. Patient is appropriate for outpatient follow up. Course & Med Decision Making: Course & Med Decision Making Pertinent Labs and Imaging studies reviewed. (See chart for details) [] Dragon Disclaimer: Dragon Disclaimer: This electronic medical record was generated, in whole or in part, using a voice recognition dictation system. Departure Departure Impression: Primary Impression: Laceration of right upper extremity Additional Impression: Need for Tdap vaccination Disposition: HOME / SELF CARE / HOMELESS Condition: STABLE Referrals: JOSE HERNÁNDEZ MD (PCP) Patient Instructions: Laceration Care, Adult, [id number], VIS, Tetanus, Diphtheria (Td); Tetanus, Diphtheria, Pertussis (Tdap) - CDC Additional Instructions: Fill the prescription and use it as directed. Keep the area clean and dry. You may take Tylenol or ibuprofen as needed for pain. Keep the dressing that was placed today on for 24 hours then change the dressing twice a day and cleanse with soap and water. Wear the velcro wrist splint until the sutures have been removed. Follow-up with your primary care doctor, or return to the emergency room in 10-14 days to have the sutures removed, sooner if you develop signs of infection including: redness, warmth, drainage, or a fever. Scripts Cephalexin (CEPHALEXIN) 500 Mg Tablet 1 TAB PO BID for 7 Days, #14 TAB 0 Refills Prov: NATALY HUGO PRACTICE REPRESENTATIVE 11/13/20 Problem Qualifiers Primary Impression: Laceration of right upper extremity Encounter type: initial encounter Qualified Codes: S41.111A - Laceration without foreign body of right upper arm, initial encounter NATALY HUGO PRACTICE REPRESENTATIVE Nov 13, 2020 10:10
[2020-11-13] MEDS ORDERED: DIPH,PERTUSS(ACELL),TET VAC/PF 0.5 ML SYRINGE. VAX IM ONE ×2 (10:12→10:30)
[2020-11-13] MEDS ORDERED: LIDOCAINE 2% Multi-Dose 20 ML VIAL. ONE (10:12)
[2020-11-13] MEDS ORDERED: LIDOCAINE 2% Multi-Dose 20 ML VIAL. IJ ONE (10:15)
[2020-11-13] MEDS ORDERED: CEPH500T PO (10:39)
[2020-11-13] MEDS ORDERED: BACITRACIN TOPICAL OINT PACKET. TP ONE (10:56)
[2020-11-13 11:00] VITALS: BP 168/79
== END 2020-11-13 11:07 | disposition home or self-care (01) ==
LOC: ER 09:43
DX: S41.111A Laceration without foreign body of right upper arm, initial encounter (principal); I10 Essential (primary) hypertension; W27.8XXA Contact with other nonpowered hand tool, initial encounter; Y93.89 Activity, other specified; Y92.89 Other specified places as the place of occurrence of the external cause; Y99.8 Other external cause status
CPT/HCPCS: 12002; 90471; 90715; 99283

== ENCOUNTER → 2021-05-29 | Outpatient (CLI) | payer MEDICARE, OTHER ==
[~2021-05-29] MED LIST changes: +CEPH500T PO; -MOME17SP NS; +MOME17SP5 NS
--- NOTE | 2021-05-29 16:42 | CARD ---
MR#: [id number] Date of Study: 05/29/2021 Ordering Physician: TERRY GARCÍA, Referring Physician: TERRY GARCÍA, Tech: Juliette Martinze [facility] APPROVED REPORT EXAM: Two-dimensional and M-mode echocardiogram with Doppler and color Doppler. Other Information Quality : AverageHR: 62bpm INDICATION Atrial Fibrillation RISK FACTORS Hypertension Hyperlipidemia Diabetes 2D DIMENSIONS RVDd2.8 (2.9-3.5cm)Left Atrium(2D)2.6 (1.6-4.0cm) IVSd1.1 (0.7-1.1cm)Aortic Root(2D)2.6 (2.0-3.7cm) LVDd4.2 (3.9-5.9cm)LVOT Diameter1.9 (1.8-2.4cm) PWd1.0 (0.7-1.1cm)LVDs2.7 (2.5-4.0cm) FS (%) 35.2 %SV49.9 ml LVEF(%)65.0 (>50%) Aortic Valve AoV Peak Richy.179.7cm/sAoV VTI42.2cm AO Peak GR.12.9mmHgLVOT Peak Richy.118.6cm/s LVOT VTI 29.25cmAO Mean GR.7mmHg ELIDA (VMAX)1.22yb0JBI (VTI)2.02cm2 Mitral Valve MV E Fcmsfjtg96.4cm/sMV DECEL [id number] MV A Ygtejedl17.1cm/sMV E Mean Gr.1mmHg MV KQC50cgR/A Ratio1.3 MVA (PHT)3.55cm2 TDI E/Lateral E'12.2E/Medial E'15.6 Pulmonary Valve PV Peak Xavtdavx31.6cm/sPV Peak Grad.3mmHg Tricuspid Valve TR P. Gxkqjqow783oy/sTR Peak Gr.33mmHg Pulmonary Vein S1 Uulbipee73.6cm/sD2 Vjpqtmmw45.9cm/s PVa [id number] LEFT VENTRICLE The left ventricle is normal size. There is borderline to mild concentric left ventricular hypertroph y. The left ventricular systolic function is normal. The Ejection Fraction is 55-60%. There is normal LV segmental wall motion. RIGHT VENTRICLE The right ventricle is mildly dilated. There is normal right ventricular wall thickness. The right ve ntricular systolic function is normal. ATRIA The left atrium is borderline dilated. The right atrium size is normal. The interatrial septum is int act with no evidence for an atrial septal defect or patent foramen ovale as noted on 2-D or Doppler i maging. AORTIC VALVE The aortic valve is thickened but opens well. Doppler and Color Flow revealed no significant aortic r egurgitation. There is no significant aortic valvular stenosis. Calculated aortic valve area is 1.81 cm2 with maximum pressure gradient of 18 mmHg and mean pressure gradient of 9 mmHg. MITRAL VALVE The mitral valve is normal in structure and function. There is no evidence of mitral valve prolapse. There is no mitral valve stenosis. Doppler and Color-flow revealed trace mitral regurgitation. TRICUSPID VALVE The tricuspid valve is normal in structure and function. Doppler and Color Flow revealed mild tricusp id regurgitation with an estmated PAP of 48 mmHg. There is no tricuspid valve stenosis. PULMONIC VALVE The pulmonic valve is not well visualized. Doppler and Color Flow revealed no pulmonic valvular regur gitation. GREAT VESSELS The aortic root is normal in size. The IVC is normal in size and collapses >50% with inspiration. PERICARDIAL EFFUSION There is no evidence of significant pericardial effusion. Critical Notification Critical Value: No <Conclusion> The left ventricular systolic function is normal. The Ejection Fraction is 55-60%. There is normal LV segmental wall motion. Trace mitral regurgitation. Mild tricuspid regurgitation with an estmated PAP of 48 mmHg. There is no evidence of significant pericardial effusion. Signed by : Terry García, Electronically Approved : 05/29/2021 16:41:41
== END ==
LOC: ECHO 14:26
PROVIDERS: ATTEND Internal Medicine Cardiovascular Disease
DX: I08.2 Rheumatic disorders of both aortic and tricuspid valves (principal); I48.0 Paroxysmal atrial fibrillation
CPT/HCPCS: 93306

== ENCOUNTER → 2021-10-04 | Outpatient (CLI) | payer MEDICARE, OTHER ==
[2021-10-04 14:23] LABS: BASO % 0 % (0-3); EOS # 0.1 x10^3/uL (0.0-0.7); EOS % 1 % (0-3); HEMATOCRIT 36.1 % (36.0-47.0); HEMOGLOBIN 12.1 g/dL (12.0-15.5); LYMPH # 2.2 x10^3/uL (1.0-4.8); LYMPH % 22 % (24-48); MEAN CORPUSCULAR HEMOGLOBIN 28 pg (25-35); MEAN CORPUSCULAR HGB CONC 34 g/dL (31-37); MEAN CORPUSCULAR VOLUME 84 fL (79-100); MONO % 10 % (0-9); NEUT # 6.6 x10^3/uL (1.8-7.7); NEUT % 67 % (31-73); PLATELET COUNT 387 x10^3/uL (140-400); RED BLOOD COUNT 4.28 x10^6/uL (3.50-5.40); RED CELL DISTRIBUTION WIDTH 14.1 % (11.5-14.5); WHITE BLOOD COUNT 9.9 x10^3/uL (4.0-11.0)
[2021-10-04 15:15] LABS: ALBUMIN 3.7 g/dL (3.4-5.0); ALBUMIN/GLOBULIN RATIO 0.9 (1.0-1.7); CALCIUM 9.1 mg/dL (8.5-10.1); CREATININE 1.1 mg/dL (0.6-1.0); GFR 47.2; POTASSIUM 4.6 mmol/L (3.5-5.1); TOTAL BILIRUBIN 0.7 mg/dL (0.2-1.0)
[2021-10-07 19:09] LABS: ALBUM 3.6 g/dL (2.9-4.4); ALPHA 1 0.2 g/dL (0.0-0.4); ALPHA 2 0.7 g/dL (0.4-1.0); BETA 0.8 g/dL (0.7-1.3); PROTEIN TOTAL 7.3 g/dL (6.0-8.5)
[2021-10-08 16:19] LABS: KAPPA FREE 58.6 mg/L (3.3-19.4); KAPPA LAMBDA RATIO 4.73 (0.26-1.65); LAMBDA FREE 12.4 mg/L (5.7-26.3)
[2021-10-09 15:23] LABS: COMMENT IMMUNOFIX SERUM Note: (.); IMMUNOGLOBULIN A 28 mg/dL (64-422); IMMUNOGLOBULIN G 446 mg/dL (586-1602); IMMUNOGLOBULIN M 2168 mg/dL (26-217)
== END ==
LOC: ONCLAB 13:48
PROVIDERS: ATTEND Internal Medicine Hematology & Oncology
DX: C88.0 Waldenstrom macroglobulinemia (principal)
CPT/HCPCS: 36415; 80053; 82784; 83520; 84165; 85025; 86334